=== PATIENT | male | born 1960 | race Caucasian/White ===

== ENCOUNTER 2022-01-08 00:12 | Day surgery (SDC) | payer OTHER, SELFPAY ==
[2022-01-06 10:24] VITALS: BMI 27.1
--- NOTE | 2022-01-06 10:57 | PC.NURSE ---
Report to the Outpatient Waiting Room, entrance under the green pavilion located off [facility], at 1000 on 01-08-22. OR Time: 1200. - You and your visitor will be asked to self-screen and do not enter if you have any COVID symptoms. - Only one visitor and NO children visitors are allowed at this time. - The patient visitor is requested to leave or wait in car when not with patient due to restrictions. - A mask is required within the hospital. Patients may have clear liquids (water, carbonated beverages, clear teas, apple juice) until 3 hours prior to surgery with a maximum of 20 ounces. 0900 - No food from midnight until time of surgery - Infants may have breast milk until 4 hours before surgery, formula 6 hours prior to surgery. - Children will be allowed to drink immediately following surgery. If applicable, please bring a bottle or sippy cup to assist with drinking. Juice, water, soda, and popsicles are readily available. For infants on formula, please bring formula the day of surgery. Pacifiers are allowed. Take the following medications with a SIP of water the morning of surgery: atorvastatin Medications to discontinue per physician: N/A Please no make-up, nail saudi [place]abian, hairspray, perfume, deodorant, or body powder the day of surgery. No jewelry (including any body piercings) or valuables the day of surgery, leave them at home. Please take a shower or bath the night before, or the morning of, surgery with an antibacterial soap. Hibiclens Wear comfortable, loose fitting clothing. Children are encouraged to wear pajamas. - Jewelry must be removed prior to entering the operating room. Rings and piercings that are not removed may be cut off. - The hospital will not accept responsibility for valuables. - Please leave all valuables, including medications, at home the day of surgery. If you are going home after surgery, a licensed otr refrigerated cdl truck driver must drive you home. - NO public transportation without another adult. - We recommend that an adult stay with you for 24 hours following discharge. - We also recommend that you do not drive, make important decision, drink alcoholic beverages, or take any drugs that were not prescribed by your health care provider for at least 24 hours after your discharge time. For Pediatric surgeries, we recommend two adults accompany the child home (only one inside the building at this time). Follow any additional instructions given to you from your surgeon. If you or anyone in your household have experienced Covid symptoms in the past week, please notify your surgeon or the nurse liaison at the phone number below for possible testing. Telephone instructions given to Nuno Mcgrath and asked if any additional questions and then verbalized understanding. Patient advised to call surgeon office or pre surgery nurse liaison [phone] if any additional questions.
--- NOTE | 2022-01-07 15:44 | PM.SD2 ---
Same Day Admit/Disch: HPI History of Present Illness Chief complaint: left inguinal hernia Narrative: Nuno Mcgrath is a 61 year old male Who has had a bulge and some discomfort in the left groin for at least a couple of years. This has become more bothersome. He was seen in the office and found to have a left inguinal hernia. He also had a CT scan that showed a left inguinal hernia. He is taken to surgery now for elective inguinal hernia repair. 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 Gender identity (if verbalized by the patient): Male Spiritual care concerns: No Same Day Admit/Disch: Med Pre-admit Medications Home Medications Medication Instructions Recorded Confirmed Type atorvastatin 10 mg tablet 10 mg PO DAILY 10/22/21 01/08/22 History hydrocodone 5 mg-acetaminophen 325 1 - 2 tablet PO Q6H PRN pain #7 01/08/22 Rx mg tablet tabs ketorolac 10 mg tablet 10 mg PO Q6H 4 days #16 tabs 01/08/22 Rx Exam Const: General: comfortable, no acute distress, alert and awake HENMT: Head: normocephalic and atraumatic Mouth: Yes Normal oral and palatal mucosa present Eyes: Conjunctivae: conjunctivae normal Pupils: Equal, round and reactive pupils present EOM: EOMs intact bilaterally Neck: Neck: normal visual inspection, no lymphadenopathy and nontender Resp: Effort & Inspection: normal respiratory effort Auscultation: clear to auscultation bilaterally Cardio: Rate: regular rate Rhythm: regular rhythm Heart sounds: no gallops, no murmurs and no rubs GI: Inspection: non-distended GI Palp: Yes Soft to palpation, No Tenderness to palpation present (GI), No Hepatomegaly present and No Splenomegaly present : Male General Exam: Yes hernia ( Reducible left inguinal hernia) Penis: Yes normal penis Scrotum: scrotum normal Testes: Testes normal Skin: Lesions: no lesions Rashes: no rashes Neuro: General: no focal motor deficits and CN's II-XI intact bilaterally Cranial nerves: Yes Equal, round and reactive pupils present, Yes Bilaterally intact EOM present, Yes facial symmetry and Yes Midline tongue present Speech: normal speech Motor exam (neuro): 5/5 motor strength present throughout and Motor abnormalities not present Extrem: General: no clubbing, cyanosis or edema and edema Psych: Affect: normal affect Thought process: Normal thought process present Insight: Good insight present (Psych) DS: Summary Time Spent with Patient Time attestation: Total time spent providing and/or coordinating discharge services: DS: Admitting Diagnosis Discharge Date 01/08/2022 Admitting Diagnosis left inguinal hernia -plan to proceed with inguinal hernia repair under anesthesia. The procedure the risks the benefits have been discussed with the patient. The use of mesh, the usual recovery have been discussed. All questions were answered. He understands and agrees to go ahead. DS: Discharge Diagnosis Discharge Diagnosis (1) Left inguinal hernia: Code(s): K40.90 - Unilateral inguinal hernia, without obstruction or gangrene, not specified as recurrent Status: Chronic Discharge Plan Discharge Patient Disposition: H
[2022-01-08 10:39] VITALS: BP 124/67; PULSE 61; RESP 16; TEMP 36.4; O2SAT 100
[2022-01-08] MEDS: ACETAMINOPHEN 500 MG TABLET 1000 MG PO (10:55)
[2022-01-08] MEDS: LACTATED RINGERS 1,000 ML 30 ML IV CONT (11:07)
[2022-01-08] MEDS: KETOROLAC 15 MG/ML VIAL (*BKC) IV PUSH (11:14)
--- NOTE | 2022-01-08 12:18 | P.PNAN_ITS ---
Anes - Initial Pre Proc Eval Procedure: Operation Date: 01/08/22 12:30 Proposed Procedures p Left Inguinal Hernia Repair - Samuel Quesada MD Date/Time: 01/08/22 12:18 Surgeon: Samuel Quesada MD Pre Op Diagnosis: left inguinal hernia Patient Data Age: 61 Gender: M Height: 1.83 m Weight: 93.1 kg Last Vital Signs Temp 97.5 F L 01/08/22 10:39 Pulse 61 01/08/22 10:39 Resp 16 01/08/22 10:39 BP 124/67 01/08/22 10:39 Pulse Ox 100 01/08/22 10:39 O2 Del Method Room Air 01/08/22 10:39 Allergies Allergy/AdvReac Type Severity Reaction Status Date / Time No Known Allergies Allergy Verified 01/08/22 10:52 Home Medications Medication Instructions Recorded Confirmed Type atorvastatin 10 mg tablet 10 mg PO DAILY 10/22/21 01/08/22 History Patient hx anesthesia problems: none Family hx anesthesia problems: none Results Review: All pre-operative results and documents have been reviewed as part of the pre-operative evaluation. 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 Informed Consent: The patient's anesthetic plan and its attendant risks and benefits were discussed with the patient/family/POA. Questions were solicited and answers provided to the satisfaction of the patient/family/POA.
--- NOTE | 2022-01-08 12:49 | SUR.PREOP ---
pt informed delay in procedure.
--- NOTE | 2022-01-08 13:00 | WPDHPUPDATE1 ---
History and Physical Update Update Date/Time: 01/08/22 13:00 History and Physical has been reviewed, including an updated exam of the patient. There are NO changes in the patient's condition. Risks, benefits, and alternatives have been discussed and questions answered. Patient agrees to proceed with procedure.
[2022-01-08] MEDS: ceFAZolin 2 GM/D5W 50 ML 2 GM/50 ML BAG IVPB (13:12)
[2022-01-08] MEDS: BUPIVACAINE/EPINEPHRINE 0.25% 50 ML VIAL INFILTRATE (14:18)
--- NOTE | 2022-01-08 14:31 | P.OP_ITS ---
Procedure Note - Detailed Date of Procedure 01/08/22 Pre-op Diagnosis left inguinal hernia Post-op Diagnosis Same Procedure Performed Left inguinal hernia repair with mesh Surgeon Samuel Quesada MD Signs Sales Representative Ti Connor CRNA Anesthesia General (G IV S), Local (0.25% bupivacaine with epinephrine) and Other (Xaracoll) Indications Patient is a 61-year-old man with at least a couple of years of left groin bulge which has gotten bigger and is more bothersome. He was examined in the office and found to have a left inguinal hernia. He is taken to surgery now for repair Findings Patient had a large indirect hernia. Description of Procedure The patient was taken to surgery and anesthesia was introduced. The left groin and genitalia were prepped and draped. The proposed incision was marked on the skin. Local was infiltrated in the skin and the deeper subcutaneous tissues. Incision was made and dissection was carried down through the subcutaneous. Crossing veins were cauterized and divided. Dissection was carried through Brayan's fascia and eventually down to the external oblique aponeurosis. The aponeurosis was exposed as was the external ring. Local was then infiltrated deep to the aponeurosis in the area of the inguinal canal and its contents. The aponeurosis was opened laterally and extended medially through the external ring. The leaves of the aponeurosis were freed from the underlying inguinal canal contents. The ilioinguinal nerve was left attached to the spermatic cord and was un injured through the procedure. We mobilized the cord medially on a Jefry drain. We then mobilized the cord back to the internal ring. We dissected in the anteromedial spermatic cord. There was large amount of lipomatous tissue in the cord. This was dissected free and back to the internal ring. There was amputated and discarded. We then found the hernia sac. We dissected the hernia sac back to the internal ring. High dissection was performed. I then dunked the hernia sac in the retroperitoneum. A large PerFix Light plug was used. This was placed in the defect. The edges were sutured to the transversalis fascia with interrupted 3-0 Vicryl suture. A patch was then cut to the appropriate size. It was placed over the inguinal canal floor with the lateral leaves passing beyond the cord. I then placed the Xaracoll over the patch. The cord was laid over the 1st pieces Xaracoll. The external oblique aponeurosis was closed with interrupted 3-0 Vicryl suture. The 2nd piece of Xaracoll was placed over the aponeurosis. Brayan's fascia was then closed with interrupted 3-0 Vicryl suture. The last piece of Xaracoll was placed in the subcutaneous. The skin was then loosely approximated with interrupted 4-0 Vicryl skin suture. The skin was finally closed with a running 4-0 Monocryl skin suture. The wound was dressed with Exofin surgical adhesive. The patient was awakened and taken to outpatient recovery in good condition. Sponge and needle counts were correct x2. Implants Large PerFix Light plug and patch, Xaracoll Estimated Blood Loss -5 Drains No Packing No Pathology None sent Complications No immediate complications Condition Stable Disposition Same day [facility] Billing Surgery - Charge Forward: Surgery Billing (Left inguinal hernia repair)
[2022-01-08 14:35] VITALS: BP 140/67; PULSE 88; RESP 16; O2SAT 97
[2022-01-08 15:00] VITALS: BP 140/75; PULSE 77; RESP 20
[2022-01-08 15:30] VITALS: BP 126/68; PULSE 78; RESP 20
[2022-01-08 16:09] VITALS: BP 153/69; PULSE 51; RESP 20
[2022-01-08 16:30] VITALS: BP 155/70; PULSE 45; RESP 20
== END 2022-01-08 16:35 | disposition home or self-care (01) ==
PROVIDERS: PCP Nurse Practitioner Family; Visit Provider Surgery
PROC: (CPT 49505; principal; 2022-01-08 12:30)
DX: K40.90 Unilateral inguinal hernia, without obstruction or gangrene, not specified as recurrent (principal); Z87.891 Personal history of nicotine dependence
CPT/HCPCS: 49505; A9270; C1781; J0690; J1885; J2250; J2270; J2704; J3010; J7120

== ENCOUNTER 2023-08-10 09:50 | Outpatient (CLI) | payer OTHER, SELFPAY ==
--- NOTE | ~2023-08-10 | US_ITS ---
EXAMINATION: US venous doppler [facility] DATE: 08/10/2023 10:29 INDICATION: Localized lower limb edema. TECHNIQUE: Grayscale ultrasound images without and with compression and Doppler ultrasound images of the bilateral lower extremity veins were obtained. COMPARISON: None. FINDINGS: The visualized portions of right common femoral vein, profunda (deep) femoral vein, femoral vein, pop liteal vein, peroneal veins, posterior tibial veins, and greater saphenous vein outflow are patent. The visualized portions of left common femoral vein, profunda femoral vein, femoral vein, popliteal v ein, peroneal veins, posterior tibial veins, and greater saphenous vein outflow are patent. IMPRESSION: 1. No deep venous thrombosis. Reviewed, dictated and finalized at location A.
== END 2023-08-10 09:51 | disposition home or self-care (01) ==
PROVIDERS: PCP Family Medicine; Visit Provider Internal Medicine Cardiovascular Disease
DX: R60.0 Localized edema (principal)
CPT/HCPCS: 93970

== ENCOUNTER 2024-05-26 16:42 | Emergency (ER) | payer OTHER, SELFPAY ==
--- NOTE | ~2024-05-26 | XR_ITS ---
CHEST RADIOGRAPH, PA AND LATERAL CLINICAL HISTORY: chest pain . COMPARISON: None available TECHNIQUE: PA and lateral views of the chest. FINDINGS Small hiatal hernia. The remainder of the cardiomediastinal silhouette is otherwise unremarkable. The lungs are clear. Visualized osseous structures and soft tissues are unremarkable. IMPRESSION: No focal infiltrate or effusion. Reviewed, dictated and finalized at location A. 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
--- OUTSIDE RECORDS SUMMARY | 2024-05-26 16:46 | XMS_ITS | Clinical Summary ---
Author [place] [facility] [place] [address] [facility] Address [address] [place] [address] Care Team Providers Care Shipping Receiving Clerk Name Role Phone Flash Horner MD Primary Care Provider [phone] Sandro Samaniego MD Unavailable [phone] Allergies Active Allergy Reactions Criticality Noted Date Comments Cat Dander Sneezing,Other (See comments) High Reaction: sneezing, congestion, Medications triamcinolone (KENALOG) 0.1 % ointmentIndicat ions:Dermatitis Apply topically 2 (two) times a day as needed for irritation or rash 60 g 5 3 Active aspirin 81 mg enteric coated tablet Take 1 tablet (81 mg total) by mouth daily 90 tablet 3 4 08/05/19 25 Active atorvastatin (LIPITOR) 80 mg tablet Take 1 tablet (80 mg total) by mouth daily 90 tablet 3 4 08/05/19 25 Active cyanocobalamin (Vitamin B-12) 2,500 mcg tablet, sublingualIndic ations:Preventi on of Vitamin B12 Deficiency Take 1 tablet (2,500 mcg total) by mouth daily 90 tablet 3 4 08/05/19 25 Active ferrous sulfate 325 mg (65 mg of elemental iron) tabletIndicatio ns:Iron Deficiency Anemia Take 1 tablet (325 mg total) by mouth daily with breakfast 90 tablet 3 4 08/05/19 25 Active metoprolol XL (TOPROL-XL) 50 mg extended release tablet Take 1 tablet (50 mg total) by mouth daily 90 tablet 3 4 08/05/19 25 Active ticagrelor (BRILINTA) 90 mg tablet Take 1 tablet (90 mg total) by mouth 2 (two) times a day 180 tablet 3 4 08/05/19 25 Active Active Problems Problem Noted Date Diagnosed Date Unstable angina ([facility]) 07/21/2023 Chest pain, unspecified type 07/19/2023 Coronary artery disease invo lving [place] coronary artery of [place] heart with unstable angina pectoris 07/19/2023 Chest pain 07/10/2023 Elevated blood pressure reading 07/10/2023 Assessment & Plan (07/10/2023 11:16 AM DEXIGRAPH OPERATOR): Today in office BP reading manually was 124/72 NAD, however patient is c/o of mild left sided chest pain Strongly recommended going to the ER for further workup and evaluation. Unable to order workup , labs, imaging at . Patient stated he would monitor and reach out to PCP office on Wednesday Dermatitis 02/03/2023 Assessment & Plan (02/03/2023 3:26 PM CDT): Discussed chronic friction/itching causing thickened skin and lichenification. Possible secondary infection that has since resolved as patient reports improvement with antibiotic treatment. Prescribed topical steroid and abx cream. Follow up if no improvement. Left inguinal hernia 10/07/2021 Assessment & Plan (10/07/2021 9:26 AM CDT): Discussed general surgeons to fix hernia. Is going to research surgeons & call if referral needed. Colon cancer screening 07/17/2021 Assessment & Plan (07/17/2021 9:04 AM CDT): Declines colonoscopy; aware that it is gold standard for CRC screening. Agreeable to cologuard. Aware that cologuard kit will be mailed with directions. To call if no results rec'd 1-2 weeks after kit mailed back for completion of test. Last cologuard neg 08/02/18. Aware to complete test after 08/02/21 Erectile dysfunction 01/16/2021 Assessment & Plan (01/16/2021 8:45 AM CDT): Printed script for viagra given. Aware to shop different pharmacies to find cheapest [place]. Aware that coupons online. Reviewed med SE & scheduling. If erection lasts >4hours; to go to ER. Reviewed red flags. Encounter for prostate cancer screening 01/11/20 Assessment & Plan (01/11/2020 9:06 AM CDT): PSA ordered; will contact with results when received. BMI 29.0-29.9,adult 07/13/2019 Assessment & Plan (10/07/2021 9:03 AM CDT): Active. Discussed healthy diet and importance of regular physical activity. Assessment & Plan (07/13/2019 11:04 PM CDT): Reviewed need to lose weight, reviewed health benefits. Reviewed recommendations for daily intake & activity 20-30 minutes/day. Discussed healthy diet and importance of regular physical activity. Has been dancing 3x/wk for exercise. Hyperlipidemia 06/21/2017 Assessment & Plan (10/07/2021 9:27 AM CDT): 07/14/19 WA=899 HDL=53 MX=729 PAD=622 TC/HDL=4.0 07/05/20 QX=774 HDL=65 TG=60 LBX=599 TC/HDL=3.3 01/16/21 RC=298 HDL=57 TG=78 NXS=025 TC/HDL=4.0 ZCXPWJ=768 10/03/21 PI=003 HDL=60 TG=71 JCW=735 TC/HDL=3.1 XFNGYW=997 Copy of results from 10/03/21 given to Nuno Mcgrath. Reviewed results at time of appointment. Atorvastatin 10mg daily. Patient should focus on limiting bad fats in the diet and using exercise as a way to improve the lipid status. Secondary prevention. Reviewed medications. Denies any statin Ses. Reviewed diet/exercise recommendations. Reviewed red flags. Assessment & Plan (07/17/2021 9:05 AM CDT): 07/11/18 MT=183, HDL=61 FJ=397 EBE=564 TC/HDL=4.0 07/14/19 VI=990 HDL=53 KX=467 BBD=375 TC/HDL=4.0 07/05/20 BR=278 HDL=65 TG=60 FQB=134 TC/HDL=3.3 01/16/21 GL=277 HDL=57 TG=78 WLF=360 TC/HDL=4.0 LZJMQH=321 Atorvastatin 10mg sent 01/2021 appt. Has not been taking. Reviewed increasing LDL/TC. Agreeable to restart atorvastatin 10mg daily. Reviewed diet. Not to get diet info off of [employer] but more reliable source such as [place] [employer], [facility], [place] [employer]. Assessment & Plan (01/16/2021 8:48 AM CDT): 07/14/19 ZZ=940 HDL=53 OR=520 ZWL=790 TC/HDL=4.0 07/05/20 RL=340 HDL=65 TG=60 QYB=027 TC/HDL=3.3 01/16/21 PV=486 HDL=57 TG=78 TZT=091 TC/HDL=4.0 IYWUBH=985 Atorvastatin 10mg sent. Patient should focus on limiting bad fats in the diet and using exercise as a way to improve the lipid status. Secondary prevention. Reviewed medications. Lipid panel ordered; will call w/results when rec'd. Denies any statin Ses. Reviewed diet/exercise recommendations. Reviewed red flags. The 10-year ASCVD risk score (Uriel DARNELL Jr., et al., 2013) is: 9.7% Values used to calculate the score: Age: 60 years Sex: Male Is Non- : No Diabetic: No Tobacco smoker: No Systolic Blood Pressure: 130 mmHg Is BP treated: No HDL Cholesterol: 65 mg/dL Total Cholesterol: 228 mg/dL Abnormal electrocardiography 09/04/2016 Overview (09/25/2016): Abnormal EKG Resolved Problems Problem Noted Date Diagnosed Date Resolved Date Class 1 obesity due to exces s calories with serious comorbidity and body mass index (BMI) of 30.0 to 30.9 in adult 02/03/2023 02/22/2023 BMI 28.0-28.9,adult 07/17/2021 10/08/19 22 Assessment & Plan (07/17/2021 8:39 AM CDT): Discussed healthy diet and importance of regular physical activity. BMI 27.0-27.9,adult 01/16/2021 07/18/19 22 Assessment & Plan (01/16/2021 8:46 AM CDT): Healthy, active lifestyle. BMI is acceptable for this patient. BMI 26.0-26.9,adult 07/11/2020 01/17/20 21 Assessment & Plan (07/11/2020 9:13 AM DEXIGRAPH OPERATOR): Dances for exercise. Discussed healthy diet and importance of regular physical activity. BMI is acceptable for this patient. LLQ abdominal pain 07/11/2020 Assessment & Plan (07/11/2020 9:36 AM DEXIGRAPH OPERATOR): CT abd/pelvis w contrast ordered. Will send order to [facility]. Aware that business office director will call for authorization & call him one it is approved/denied. Discussed inguinal hernias: [id number] symptoms from an inguinal hernia, surgical repair is indicated. Patients with minimal or no symptoms from an inguinal hernia may be managed with elective surgery or watchful waiting. Symptomatic hernia -- Patients with significant symptoms attributable to an inguinal hernia should undergo elective surgical repair. Such symptoms typically include: ?Groin pain with exertion (eg, lifting) ?Inability to perform daily activities due to pain or discomfort from the hernia ?Inability to manually reduce the hernia (ie, chronic incarceration) Mr Mcgrath is able to exercise/dance 3x/wk w/o need to stop d/t pain. Reports that bulge (when present) is reducible. Has mild to moderate pain when present. BMI 24.0-24.9, adult 01/11/2020 021 Assessment & Plan (01/11/2020 9:00 AM CDT): Discussed healthy diet and importance of regular physical activity. BMI is acceptable for this patient. Has lost 33# since 07/2019 appt. Greatly improved lifestyle/diet. No changes at this time. Congratulated on great job. Preventative health care 01/11/2020 Assessment & Plan (01/11/2020 9:01 AM CDT): Congratulated on healthy diet/exercise. Has lost 33# since 07/2019 appt w/lifestyle changes. Very health-minded. Labs ordered for next appt 07/2020 yearly physical exam. No hernia noted on exam. Discussed wt lifting, protecting area. Discussed compression shorts, decrease core exercises. Watch for hernia, reduce. Possible surgical intervention if needed. Reviewed red flags. Need for influenza vaccination 07/13/2019 07/11/2020 Assessment & Plan (01/11/2020 8:57 AM CDT): Flu vaccine given today. Discussed possible tenderness/redness at injection site. Assessment & Plan (07/13/2019 11:15 AM CDT): Flu vaccine given today. Discussed possible tenderness/redness at injection site. Need for pneumococcal vaccination 07/13/2019 01/11/2020 Assessment & Plan (07/13/2019 11:15 AM CDT): prevnar 13 vaccine given today. Discussed possible tenderness/redness at injection site. Annual physical exam 07/12/2019 Assessment & Plan (07/12/2019 10:21 PM CDT): 1. Eat a healthy diet: focus on lean meats and proteins, more fruits, vegetables and whole grains and low in sugars and fats. Limit red meat and avoid processed meat. 2. Maintain a healthy weight; avoid being overweight. Aim for a normal body mass index (BMI) of 18.5-24.9. Help learning to eat healthier, we can set up appointment with paper sales representative/resin shaver. 3. Have an active lifestyle, strive for 30 minutes of moderate exercise 5 times a week and strength or resistance training at least twice a week. 4. Use broad-spectrum (UVA+UVB) sunscreen with SPF 30 or greater, is water resistant, limit time spent in the sun (10 am-4pm), wear hat, wear UV protective clothing, wear sunglasses. Never use a tanning bed. Skin that was irradiated may be more sensitive over your lifetime. 5. Do not smoke or chew tobacco; participate in a smoking cessation program. 6. Limit alcohol intake, 2 drinks per day for a man. Encounter for screening for lipoid disorders 0 01/16/2021 Assessment & Plan (07/11/2020 9:13 AM DEXIGRAPH OPERATOR): Copy of results given to Nuno Mcgrath. Reviewed results at time of appointment 07/11/20 07/11/18 MG=397, HDL=61 KE=533 GGZ=774 TC/HDL=4.0 07/14/19 WZ=632 HDL=53 FT=516 HOO=305 TC/HDL=4.0 07/05/20 ZR=936 HDL=65 TG=60 OLT=432 TC/HDL=3.3 Reviewed diet changes to improve TC/LDL The 10-year ASCVD risk score (Uriel PATRICK Jr., et al., 2013) is: 7.9% Values used to calculate the score: Age: 59 years Sex: Male Is Non- : No Diabetic: No Tobacco smoker: No Systolic Blood Pressure: 124 mmHg Is BP treated: No HDL Cholesterol: 65 mg/dL Total Cholesterol: 216 mg/dL Assessment & Plan (01/11/2020 8:59 AM CDT): Lab Results Component Value Date CHOL 195 07/14/2019 CHOL 223 (H) 07/11/2018 HDL 53 07/14/2019 HDL 61 07/11/2018 TRIG 114 07/14/2019 TRIG 106 07/11/2018 RRK=952 07/11/18 QKS=058 07/14/19 Has since lost 33# since that draw. Will recheck prior to next appt. Lipid panel ordered; will call w/results when received. Reviewed diet/exercise recommendations. Assessment & Plan (07/13/2019 11:16 AM CDT): Lipid panel ordered; will call w/results when received. Reviewed diet/exercise recommendations. Screening PSA (prostate specific antigen) 07/12/2019 01/11/2020 Assessment & Plan (07/12/2019 10:22 PM CDT): PSA ordered; will call with results when received. Swelling of lower extremity 09/04/2016 07/12/2019 Overview (09/25/2016): Leg swelling Sensation of chest tightness 09/04/2016 07/12/2019 Overview (09/25/2016): Pressure in right side of chest Swelling 09/04/2016 07/12/2019 Overview (09/25/2016): Swelling Screening status 09/04/2016 07/12/2019 Overview (09/25/2016): Encounter for screening colonoscopy Encounters Date Type Department Care Team Description 02/24/2024 [facility]phone [facility] [address] [place] [address] Flash Horner MD from Last 3 Months Immunizations Name Administration Dates Next Due Influenza, Quadrivalent, Spl it, Preservative Free, Intramuscular 02/22/2023,05/14/2022,01/11/2020,07/12 Influenza, Unspecified 05/16/2021(Deferr ed: Patient Refused),01/31/2021,01/31/2021(Deferre d: Patient Refused),01/01/2021(Deferred: Patient Refused),07/11/2018(Deferred: Patient Refused),05/03/2018(Deferred: Patient Refused),05/03/2017(Deferred: Patient Refused),05/04/2016(Deferred: Patient Refused) Pneumococcal Conjugate PCV 13 07/13/2019 Surgical History Surgery Date Site/Laterality Comments APPENDECTOMY Appendectomy LASIK 15 years ago HERNIA REPAIR January 2022 Medical History Medical History Date Comments Arthritis past few months Family History Medical History Relation Name Comments Other Brother 2 Schizophrenia & Manic depression; Cause of : Schizophrenia & Manic depression Mental illness Brother 3 Avila Mcgrath Diabetes Father Nicholas Mcgrath Diabetes mellit us; Other Mother Mellissa Mcgrath Alive and well; Stroke Mother Mellissa Mcgrath Other Sister 1 Alive and well; Relation Name Status Comments Brother 1 (Age 60) Brother 2 Brother 3 Avila Alcides Father Nicholas Mcgrath (Age 87) Mother Mellissa Mcgrath Alive Sister 1 Alive Social History Tobacco Use Types Packs/Day Years Used Date Smoking Tobacco: Never Smokeless Tobacco: Never Tobacco Cessation:Counseling Given: Not Answered Alcohol Use Standard Drinks/Week Comments No 0 (1 standard drink = 0.6 oz pur e alcohol) [facility] Utilities Answer Date Recorded In the past 12 months has [employer], gas, oil, or water [employer] threatened to shut off services in your home? No 07/20/2023 Social Connection and Isolat ion Panel [NHANES] Answer Date Recorded In a typical week, how many times do you talk on the phone with family, friends, or neighbors? More than three times a week 07/20/2023 How often do you get togethe r with friends or relatives? Three times a week 07/20/2023 How often do you attend [facility] or nondenominational services? More than 4 times per year 07/20/2023 Do you belong to any clubs o r organizations such as congregational groups, unions, fraternal or athletic groups, or school groups? Yes 07/20/2023 How often do you attend meet ings of the clubs or organizations you belong to? More than 4 times per year 07/20/2023 Are you , , di vorced, , never , or living with a partner? 07/20/2023 AUDIT-C Answer Date Recorded Q1: How often do you have a drink containing alc ohol? 2-4 times a month 02/22/2023 Q2: How many drinks containi ng alcohol do you have on a typical day when you are drinking? 1 or 2 02/22/2023 Q3: How often do you have si x or more drinks on one occasion? Never 02/22/2023 Overall Financial Resource Strain (CARDIA) Answe r Date Recorded How hard is it for you to pa y for the very basics like food, housing, medical care, and heating? Not hard at all 07/20/2023 PHQ-2 Answer Date Recorded PHQ-2 Total Score (If total score is 3 or more points, staff should administer the PHQ-9) 0 08/02/2023 Hunger Vital Sign Answer Date Recorded Within the past 12 months, y ou worried that your food would run out before you got the money to buy more. Never true 07/20/19 24 Within the past 12 months, t he food you bought just didn't last and you didn't have money to get more. Never true 07/20/2023 PRAPARE - Transportation Answer Date Re corded In the past 12 months, has l ack of transportation kept you from medical appointments or from getting medications? No 07/01 In the past 12 months, has l ack of transportation kept you from meetings, work, or from getting things needed for daily living? No 07/20/2023 Housing Stability Vital Sign Answer Bran e Recorded In the last 12 months, was t here a time when you were not able to pay the mortgage or rent on time? No 07/20/2023 In the last 12 months, how many places have you lived? 1 07/20/2023 In the last 12 months, was t here a time when you did not have a steady place to sleep or slept in a usp (including now)? No 07/20/2023 Personal Safety Answer Date Recorded Have you ever been in or are you currently in a harmful physical or emotional relationship or is someone making you feel afraid or unsafe? Denies 07/19/2023 Education Answer Date Recorded What is the highest level of school you have completed or the highest degree you have received? High school graduate 07/20/2023 Sex and Gender Information Value Date Recorded Sex Assigned at Not on file Legal Sex Male 12:49 PM DEXIGRAPH OPERATOR Gender Identity Male 01/09/2021 7:16 AM CDT Sexual Orientation Straight 07/15/2021 11 :29 AM CDT Obstetrics History Last Filed Vital Signs Vital Sign Reading Time Taken Comments Blood Pressure 128/70 08/02/2023 10:17 AM CDT Pulse 62 08/02/2023 10:17 AM CDT Temperature 36.3 ??C (97.3 ??F) 07/24/2023 11:06 AM C DT Respiratory Rate 18 08/02/2023 10:17 AM CDT Oxygen Saturation 98% 08/02/2023 10:17 AM CDT Inhaled Oxygen Concentration - - Weight 102.1 kg (225 lb) 08/02/2023 10:17 AM CDT Height 180.3 cm (5' 10.98 ) 08/02/2023 10:17 AM CDT Body Mass Index 31.4 08/02/2023 10:17 AM CDT Plan of Treatment Health Maintenance Due Date Last Done Comments Hepatitis C Screening 1960 DTaP/Tdap/Td Vaccine (1 - Tdap) 1969 Hepatitis B Screening 1976 Zoster Vaccine (1 of 2) 2008 Pneumococcal vaccine 65+ (2 of 2 - PPSV23 or PCV20) 12/28/2023 07/13/2019 Covid-19 Vaccine (2 - 2023-2 5 season) 2024 08/08/2020 Influenza Vaccine (#1) 2024 , 05/14/2022, 01/31/2021, Additional history exists Well Visit 65+ 02/23/2024 02/22/2023, 07/01, 06/21/2017 Fall Risk Assessment 07/23/2024 07/24/2023, 10/07/2021, 07/17/2021, Additional history exists Depression Screening 08/01/2024 08/02/2023, 02/22/2023, 10/22/2022, Additional history exists Colon Cancer Screening-DNA Stool 09/21/2024 09/22/19, 08/02/2018 Prostate Cancer Screening-PSA 02/22/2025, 07/05/2020, 07/14/2019, Additional history exists Medical Devices Implanted Type Area Linen Room Attendant Device Identifier Shelf Expiration Date Model / Serial / Lot Cordis Mynxgrip 5fr Balloon Catheter Integrate Sealant Lock Latex Free [id number] - [id number] Implanted:Qty: 1 on 07/21/2023 by Sandro Samaniego MD at [facility] Other - see comments Right: Groin Cordis 10/30/2024 [id number] / / [id number] Cordis Mynxgrip 6-7fr Balloon Catheter Integrate Sealant Lock Latex Free [id number] - [id number] Implanted:Qty: 1 on 07/22/2023 by Tangela Dotson MD at [facility] Other - see comments Cordis 03/02/2025 [id number] / / [id number] [employer] Chacho Stent Coronary Drug Eluting Rapid Exchange Synergy Xd 2.94d46ng [place]zan[place] Chromium [id number] - [id number] Implanted:Qty: 1 on 07/22/2023 by Tangela Dotson MD at [facility] Stent [employer] Chacho 06/28/2024 [id number] / / [id number] [employer] Chacho Synergy Xd Monorail 3mm 20mm 144cm Delivery System 1 Access Port [id number] - [id number] Implanted:Qty: 1 on 07/22/2023 by Tangela Dotson MD at [facility] Stent [employer] Chacho 01/24/2025 [id number] / / [id number] [employer] Synergy Xd Monorail 2.75mm 38mm 144cm Delivery System 1 Access [id number] - [id number] Implanted:Qty: 1 on 07/23/2023 by Tangela Dotson MD at [facility] Stent [employer]acho 12/29/2023 [id number] / / Cordis Mynxgrip 5fr Balloon Catheter Integrate Sealant Lock Latex Free [id number] - [id number] Implanted:Qty: 1 on 07/23/2023 by Tangela Dotson MD at [facility] Cordis 06/02/2025 [id number] / / [id number] Procedures Procedure Name Priority Date/Time Associated Diagnosis Comments PSA SCREEN Routine 02/22/2023 9:10 AM CDT Prostate cancer screening STOOL DNA ? COLOGUARD Routine 09/21/2021 8:01 AM CDT Colon cancer screening from Last 3 Months or Most Recently Relevant to Health Maintenance Results * PSA screen (02/22/2023 9:10 AM CDT) Pathologist [facility] PSA-Total 0.73 <=5.40 ng/mL [facility] ([place]) Comment: Interpretive Data ?AGE ? SEX ?REFERENCE INTERVAL 0 minutes-150 years ?Female ?None 0 minutes-49 years ? Male ?None ? 50-59 years ? Male ?0-3.90 ? 60-69 years ? Male ?0-5.40 ? 70-79 years ? Male ?0-6.20 ? 80-150 years ?Male ?0-6.20 The Chris PSA Total assay procedure was used. Results from different manufacturers or methods may not be comparable. Serial testing should be performed using the same method. Current interpretive data last revised 21. Testing performed by: [facility], [address] [place] [address]., [id number] Blood 02/22/2023 9:10 AM CDT 02/22/2023 12:05 PM CDT us Alicia Sherman NP LAB BLOOD ORDERABLES Final Result Performing Organization Address City/State/[facility] Co de Phone Number [facility] ([place]) [address] [facility] [place] [address] * Stool DNA - Cologuard (09/21/2021 8:01 AM CDT) Pathologist [facility] Stool DNA - Cologuard Negative Negative [facility] (CLIA #:[id number]) Comment: NEGATIVE TEST RESULT. A negative Cologuard result indicates a low likelihood that a colorectal cancer (CRC) or advanced adenoma (adenomatous polyps with more advanced pre-malignant features) ??is present. The chance that a person with a negative Cologuard test has a colorectal cancer is less than 1 in 1500 (negative predictive value >99.9%) or has an ??advanced adenoma is less than ??5.3% (negative predictive value 94.7%). These data are based on a prospective cross-sectional study of 10,000 individuals at average risk for colorectal cancer who were screened with both Cologuard and colonoscopy. (Eric Rai. vielka al, N Engl J Med 2014;370(14):1286- 1297) The normal value (reference range) for this assay is negative. COLOGUARD RE-SCREENING RECOMMENDATION: Periodic colorectal cancer screening is an important part of preventive healthcare for asymptomatic individuals at average risk for colorectal cancer. ??Following a negative Cologuard result, the [place] Cancer Society and U.S. Multi-Society Task Force screening guidelines recommend a Cologuard re-screening interval of 3 years. References: [place] Cancer Society Guideline for Colorectal Cancer Screening: https://www.cancer.org/cancer/zjctp-myjmpu-bvwfog/jexoassmn-mordecffa-dkvikbj/ac s-rec ommendations.html.; Carlos DK, Cesar ASH, Mena FonsecaK, Colorectal Cancer Screening: Recommendations for Physicians and Patients from the U.S. Multi-Society Task Force on Colorectal Cancer Screening , Am J Gastroenterology 2017; 112:5026-1585. TEST DESCRIPTION: Composite algorithmic analysis of stool DNA-biomarkers with hemoglobin immunoassay. ?? Quantitative values of individual biomarkers are not reportable and are not associated with individual biomarker result reference ranges. Cologuard is intended for colorectal cancer screening of adults of either sex, 45 years or older, who are at average-risk for colorectal cancer (CRC). Cologuard has been approved for use by the U.S. FDA. The performance of Cologuard was established in a cross sectional study of average-risk adults aged 50-84. Cologuard performance in patients ages 45 to 49 years was estimated by sub-group analysis of near-age groups. Colonoscopies performed for a positive result may find as the most clinically significant lesion: colorectal cancer [4.0%], advanced adenoma (including sessile serrated polyps greater than or equal to 1cm diameter) [20%] or non- advanced adenoma [31%]; or no colorectal neoplasia [45%]. These estimates are derived from a prospective cross-sectional screening study of 10,000 individuals at average risk for colorectal cancer who were screened with both Cologuard and colonoscopy. (Eric Rai. vielka al, N Engl J Med 2014;370(14):3684-0466.) Cologuard may produce a false negative or false positive result (no colorectal cancer or precancerous polyp present at colonoscopy follow up). A negative Cologuard test result does not guarantee the absence of CRC or advanced adenoma (pre-cancer). The current Cologuard screening interval is every 3 years. ([place] Cancer Society and U.S. Multi-Society Task Force). Cologuard performance data in a 10,000 patient pivotal study using colonoscopy as the reference method can be accessed at the following location: www.Godigex/results. Additional description of the Cologuard test process, warnings and precautions can be found at www.cologuard.[employer]. Stool 09/21/2021 8:01 AM CDT 09/23/2021 11:54 AM CDT us Carmen Upton VEGETABLE FARMING SUPERVISOR LAB BODY FLUIDS AND STOOL S ORDERABLES Final Result Performing Organization Address City/State/[facility] Co de Phone Number [employer] (CLIA #:[id number]) [address] [place] [address] from Last 3 Months or Most Recently Relevant to Health Maintenance Insurance [facility] Advance Directives For more information, please contact: [phone] * Full Code (Latest Code Status on File) Date Activated Date Inactivated Comments 07/19/2023 2:31 PM 07/24/2023 5:10 PM Care Teams Shipping Receiving Clerk Relationship Specialty Start Date End Date Flash Horner MD [address] [place] [address] PCP - General 09/04/16 Sandro Samaniego MD [address] [place] [address] Consulting Physician Cardiovascular Disease 07/24/23
--- OUTSIDE RECORDS SUMMARY | 2024-05-26 16:46 | XMS_ITS | Encounter Summary ---
Author Organization [facility] Address [address] [place] [address] Care Team Providers Care Unarmed Security Officer Name Role Phone Flash Horner MD Primary Care Provider [phone] Sandro Samaniego MD Unavailable [phone] Encounter Details Date Type Department Care Team (Late st Contact Info) Description 09/04/2016 Orders Only [facility] [address] Antoni Goetz MD [address] [place] [id number] Social History Tobacco Use Types Packs/Day Years Used Date Smoking Tobacco: Never Alcohol Use Standard Drinks/Week Comments No 0 (1 standard drink = 0.6 oz pur e alcohol) Sex and Gender Information Value Date Recorded Sex Assigned at Not on file 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 Historical Provider [facility] MARTINA AGRAWAL Final Result documented in this encounter Visit Diagnoses Not on filedocumented in this encounter Care Teams Unarmed Security Officer Relationship Specialty Start Date End Date Flash Horner MD [address] [place] [address] PCP - General 09/04/16 Sandro Samaniego MD [address] [place] [address] Consulting Physician Cardiovascular Disease 07/24/23 documented as of this encounter
--- OUTSIDE RECORDS SUMMARY | 2024-05-26 16:46 | XMS_ITS | Referral Summary ---
Author Organization [facility] [address] [facility] Address [address] [place] [address] Care Team Providers Care Children'S Book Author Name Role Phone Flash Horner MD Primary Care Provider [phone] Sandro Samaniego MD Unavailable [phone] Encounters Date Type Department Care Team Description 02/24/2024 Telephone [facility] [address] [place] [address] Flash Horner MD from Last 3 Months Allergies Active Allergy Reactions Criticality Noted Date [...] Problem Noted Date Diagnosed Date Unstable angina ([facility]) 07/21/2023 Chest pain, unspecified type 07/19/2023 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 Reviewed results at time of appointment. Atorvastatin 10mg daily. Patient should focus on limiting bad fats in the diet and using exercise as a way to improve the lipid status. Secondary prevention. Reviewed medications. Denies any statin Ses. Reviewed diet/exercise recommendations. Reviewed red flags. Assessment & Plan (07/17/2021 9:05 AM CDT): 07/11/18 UD=152, HDL=61 DU=651 ZOM=278 TC/HDL=4.0 07/14/19 ML=578 HDL=53 FF=637 RYA=369 TC/HDL=4.0 07/05/20 NN=990 HDL=65 TG=60 RDD=367 TC/HDL=3.3 01/16/21 AZ=299 HDL=57 TG=78 IIB=804 TC/HDL=4.0 VBFQWD=414 Atorvastatin 10mg sent 01/2021 appt. Has not been taking. Reviewed increasing LDL/TC. Agreeable to restart atorvastatin 10mg daily. Reviewed diet. Not to get diet info off of [employer] but more reliable source such as [place] [employer], [facility], [place] Diabetic Association. Assessment & Plan (01/16/2021 8:48 AM CDT): 07/14/19 IM=110 HDL=53 EM=383 MNO=505 TC/HDL=4.0 07/05/20 TE=005 HDL=65 TG=60 UDW=495 TC/HDL=3.3 01/16/21 MY=512 HDL=57 TG=78 IYU=042 TC/HDL=4.0 IGQVCW=936 Atorvastatin 10mg sent. Patient should focus on limiting bad fats in the diet and using exercise as a way to improve the lipid status. Secondary prevention. Reviewed medications. Lipid panel ordered; will call w/results when rec'd. Denies any statin Ses. Reviewed diet/exercise recommendations. Reviewed red flags. The 10-year ASCVD risk score (Austintirso PATRICK Jr., et al., 2013) is: 9.7% Values [...] 21 Assessment & Plan (07/11/2020 9:13 AM MOLD LAMINATOR): Dances for exercise. Discussed healthy diet and importance of regular physical activity. BMI is acceptable for this patient. LLQ abdominal pain 07/11/2020 2 Assessment & Plan (07/11/2020 9:36 AM MOLD LAMINATOR): CT abd/pelvis w contrast ordered. [facility] Aware that access control officer will call for authorization & call him one it is approved/denied. Discussed inguinal hernias: [id number] symptoms from an inguinal hernia, surgical repair [...] at injection site. Annual physical exam 07/12/2019 021 Assessment & Plan (07/12/2019 10:21 PM CDT): [...] healthier, we can set up appointment with radiocommunications technician/sanitation worker cleaning machinery. 3. Have an active lifestyle, strive for [...] 01/16/2021 Assessment & Plan (07/11/2020 9:13 AM MOLD LAMINATOR): Copy of results given to Nuno Mcgrath. Reviewed results at time of appointment 07/11/20 07/11/18 FG=724, HDL=61 ND=411 VOU=711 TC/HDL=4.0 07/14/19 ZW=962 HDL=53 DX=855 ECY=731 TC/HDL=4.0 07/05/20 ME=067 HDL=65 TG=60 UYS=868 TC/HDL=3.3 Reviewed diet changes to improve TC/LDL The 10-year ASCVD risk score (Uriel DARNELL Jr., et al., 2013) is: 7.9% Values [...] 07/11/2018 TRIG 114 07/14/2019 TRIG 106 07/11/2018 QTO=778 07/11/18 AJB=877 07/14/19 Has since lost 33# since that [...] 07/12/2019 Overview (09/25/2016): Encounter for screening colonoscopy Immunizations Name Administration Dates Next Due Influenza, Quadrivalent, Spl it, Preservative Free, Intramuscular 02/22/2023,05/14/2022,01/11/2020,07/12 Influenza, Unspecified 05/16/2021(Deferr ed: Patient Refused),01/31/2021,01/31/2021(Deferre d: Patient Refused),01/01/2021(Deferred: Patient Refused),07/11/2018(Deferred: Patient Refused),05/03/2018(Deferred: Patient Refused),05/03/2017(Deferred: Patient Refused),05/04/2016(Deferred: Patient Refused) Pneumococcal Conjugate PCV 13 07/13/2019 Social History Tobacco Use Types Packs/Day Years Used Date Smoking Tobacco: Never Smokeless Tobacco: Never Tobacco Cessation:Counseling Given: Not Answered Alcohol Use Standard Drinks/Week Comments No 0 (1 standard drink = 0.6 oz pur e alcohol) [facility] Utilities Answer Date Recorded In the past 12 months has [employer], gas, oil, or water [employer] threatened to shut off services in your [...] week 07/20/2023 How often do you attend chur ch or episcopalian services? More than 4 times per year 07/20/2023 Do you belong to any clubs o r organizations such as mandaeism groups, unions, fraternal or athletic groups, or [...] place to sleep or slept in a chcf (including now)? 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 Gender Identity Male 01/09/2021 7:16 AM CDT Sexual Orientation Straight 07/15/2021 11 :29 AM CDT Last Filed Vital Signs Vital Sign Reading [...] 08/02/2023 10:17 AM CDT Plan of Treatment Not on file Medical Devices Implanted Type Area Assistant Professor Nurse Education Device Identifier Shelf Expiration Date Model / Serial / Lot Cordis Mynxgrip 5fr Balloon Catheter Integrate Sealant Lock Latex Free [id number] - [id number] Implanted:Qty: 1 on 07/21/2023 by Sandro Samaniego MD at [facility] Other - see comments Right: Groin Cordis 10/30/2024 [id number] / / [id number] Cordis Mynxgrip 6-7fr Balloon Catheter Integrate Sealant Lock Latex Free [id number] - [id number] Implanted:Qty: 1 on 07/22/2023 by Tangela Dotson MD at [facility] Other - see comments Cordis 03/02/2025 [id number] / / [id number] [employer] Chacho Stent Coronary Drug Eluting Rapid Exchange Synergy Xd 2.15k71ee Rockmart Chromium [id number] - [id number] Implanted:Qty: 1 on 07/22/2023 by Tangela Dotson MD at [facility] Stent [employer] Chacho 06/28/2024 [id number] / / [id number] [employer] Chacho Synergy Xd Monorail 3mm 20mm 144cm Delivery System 1 Access Port [id number] - [id number] Implanted:Qty: 1 on 07/22/2023 by Tangela Dotson MD at [facility] Stent [employer] Chacho 01/24/2025 [id number] / / [id number] [employer] Chacho Synergy Xd Monorail 2.75mm 38mm 144cm Delivery System 1 Access [id number] - [id number] Implanted:Qty: 1 on 07/23/2023 by Tangela Dotson MD at [facility] Stent [employer] Chacho 12/29/2023 [id number] / / Cordis Mynxgrip 5fr Balloon Catheter Integrate Sealant Lock Latex Free [id number] - [id number] Implanted:Qty: 1 on 07/23/2023 by Tangela Dotson MD at [facility] Cordis 06/02/2025 [id number] / / [id number] Procedures Procedure Name Priority Date/Time Associated Diagnosis Comments PSA SCREEN Routine 02/22/2023 9:10 AM CDT Prostate cancer screening STOOL DNA ? COLOGUARD Routine 09/21/2021 8:01 AM CDT Colon cancer screening from Last 3 Months or Most Recently Relevant to Health Maintenance Results * PSA screen (02/22/2023 9:10 AM CDT) Pathologist [facility] PSA-Total 0.73 <=5.40 ng/mL [facility] ([place]) Comment: Interpretive Data ?AGE ? SEX ?REFERENCE [...] data last revised 21. Testing performed by: [facility], [address] [place] [address]., [id number] Blood 02/22/2023 9:10 AM CDT 02/22/2023 12:05 PM CDT Alicia Sherman NP LAB BLOOD ORDERABLES Final Result [facility] ([place]) [address] [facility] Department [place] [address] * Stool DNA - Cologuard (09/21/2021 8:01 AM CDT) [facility] Stool DNA - Cologuard Negative Negative [facility] (CLIA #:[id number]) Comment: NEGATIVE TEST RESULT. A negative Cologuard [...] screened with both Cologuard and colonoscopy. (Eric Lennon et al, N Engl J Med 2014;370(14):1286- 1297) The normal value (reference range) for this assay is negative. COLOGUARD RE-SCREENING RECOMMENDATION: Periodic colorectal cancer screening is an important part of preventive healthcare for asymptomatic individuals at average risk for colorectal cancer. ??Following a negative Cologuard result, the [place] Cancer Society and U.S. Multi-Society Task Force screening guidelines recommend a Cologuard re-screening interval of 3 years. References: [place] Cancer Society Guideline for Colorectal Cancer Screening: https://www.cancer.org/cancer/ucigk-kpqlwv-sskyrf/ouqjyweym-sftmylqja-xbojtlb/ac s-rec ommendations.html.; Carlos DK, Cesar CR, Mena FonsecaK, Colorectal Cancer Screening: Recommendations for Physicians and Patients from the U.S. Multi-Society Task Force on Colorectal Cancer Screening , Am J Gastroenterology 2017; 112:9794-0727. TEST DESCRIPTION: Composite algorithmic analysis of stool [...] screened with both Cologuard and colonoscopy. (Eric Tyler al, N Engl J Med 2014;370(14):9264-4019.) Cologuard may produce a false negative or false positive result (no colorectal cancer or precancerous polyp present at colonoscopy follow up). A negative Cologuard test result does not guarantee the absence of CRC or advanced adenoma (pre-cancer). The current Cologuard screening interval is every 3 years. ([place] Cancer Society and U.S. Multi-Society Task Force). Cologuard performance data in a 10,000 patient pivotal study using colonoscopy as the reference method can be accessed at the following location: www.Smilebox/results. Additional description of the Cologuard test process, warnings and precautions can be found at www.[employer].com. Stool 09/21/2021 8:0 1 AM CDT 09/23/2021 11:54 AM CDT us Carmen Upton NP LAB BODY FLUIDS AND STOOL S ORDERABLES Final Result [facility] (CLIA #:[id number]) [address] [place] [address] from Last 3 Months or Most Recently Relevant to Health Maintenance Insurance [facility] Advance Directives For more information, please contact: [phone] * Full Code (Latest Code Status on File) Date Activated Date Inactivated Comments 07/19/2023 2:31 PM 07/24/2023 5:10 PM Care Teams Children'S Book Author Relationship Specialty Start Date End Date Flash Horner MD [address] [place] [address] PCP - General 09/04/16 Sandro Samaniego MD [address] [place] [address] [place] [address] Consulting Physician Cardiovascular Disease 07/24/23
--- NOTE | 2024-05-26 16:47 | ECG_ITS ---
Test Date: 2024-05-26 17:27:45 Measurements Intervals [place] Rate: 49 P: 10 AZ: 181 QRS: -44 QRSD: 173 T: -14 QT: 439 QTc: 398 Interpretive Statements SINUS BRADYCARDIA MARKED LEFT AXIS DEVIATION [QRS AXIS < -30] RIGHT BUNDLE BRANCH BLOCK [120+ ms QRS DURATION, UPRIGHT V1, 40+ ms S IN I/aVL/V4/V5/V6] No previous ECG available for comparison Electronically Signed On 05-26-2024 23:50:38 NURSE RN BSN by Kwabena Carrillo M.D.
[2024-05-26 17:20] VITALS: BP 148/80; PULSE 50; RESP 20; TEMP 36.4; O2SAT 99
--- NOTE | 2024-05-26 17:31 | ED_ITS ---
HPI - Chest Pain General Chief Complaint: Chest Pain <Shannan Benitez APRN - Last Filed: 05/26/24 17:34> Stated Complaint: intermittent chest pain, tiredness <Shannan Benitez APRN - Last Filed: 05/26/24 17:34> Time Seen by Provider: 05/26/24 17:20 <Shannan Benitez APRN - Last Filed: 05/26/24 17:34> Focused HPI: Patient is a 63-year-old male who presents to the ER with decreased energy and chest pain for the past 2-3 weeks. He reports he had cardiac stents placed in July and has followed up with his access coordinator as planned. Patient reports he called his access coordinator earlier today who advised him to come to the ER for evaluation. He endorses a history of hernia repair but no other medical history relevant ER visit. Patient denies shortness of breath, wheezing, recent fevers, urinary symptoms. GENERAL: Well-appearing, well-nourished, and in no acute distress. HEAD: Normocephalic, atraumatic. CHEST: Clear to auscultation. ?No respiratory distress. HEART: Bradycardia, regular rhythm. NEURO: ?Alert and oriented x3. Patient screened in triage and initial orders placed.? ?Additional care and disposition to be based upon?diagnostic testing and treatment. <Shannan Benitez APRN - Last Filed: 05/26/24 17:34> History of Present Illness HPI narrative: Patient is a 63-year-old gentleman who presents emergency department with chief complaint of generalized weakness and chest discomfort patient reports been ongoing for the last several weeks reports the pain last for a few seconds reports that does feel like tightness. The patient reports that he has several stents in his heart reports that he sees 1 of the local access coordinator. The patient reports he called the office today and they recommended he come to the emergency department for evaluation. <Aaron Osman MD - Last Filed: 05/26/24 22:04> Related Data Home Medications: Home Medications ?Medication ?Instructions ?Recorded ?Confirmed ?Last Taken ?Type aspirin 81 mg tablet,delayed 81 mg PO DAILY 08/10/23 05/26/24 05/26/24 History release (Adult Low Dose Aspirin) atorvastatin 80 mg tablet (Lipitor) 80 mg PO DAILY 08/10/23 05/26/24 05/26/24 History ferrous sulfate 325 mg (65 mg 325 mg PO DAILY 08/10/23 05/26/24 05/26/24 History iron) tablet metoprolol succinate 50 mg 50 mg PO DAILY 08/10/23 05/26/24 05/26/24 History tablet,extended release 24 hr (Toprol XL) ticagrelor 90 mg tablet (Brilinta) 90 mg PO Q12H 08/10/23 05/26/24 05/26/24 History vitamin B12 2,500 mcg-folic acid tablet PO DAILY 08/10/23 12/22/23 05/26/24 History 400 mcg disintegrating tablet <Shannan Benitez APRN - Last Filed: 05/26/24 17:34> Allergies/Adverse Reactions: Allergies Allergy/AdvReac Type Severity Reaction Status Date / Time cats Allergy Sneezing Uncoded 05/26/24 18:15 pollen Allergy Sneezing Uncoded 05/26/24 18:15 <Shannan Benitez APRN - Last Filed: 05/26/24 17:34> Review of Systems 2 Review of Systems: A 10 system review of systems was completed on the patient and is negative except for what is stated in the HPI. Nursing and ancillary documentation was reviewed. <Aaron Osman MD - Last Filed: 05/26/24 22:04> [facility]LY [facility] Past Medical History Medical History: Medical History Encounter for other specified surgical aftercare Overweight (BMI 25.0-29.9) Left inguinal hernia <Shannan Benitez APRN - Last Filed: 05/26/24 17:34> Surgical History Surgical History: Surgical History H/O inguinal hernia repair 01/08/22 History of appendectomy <Shannan Benitez APRN - Last Filed: 05/26/24 17:34> Family History Family History: Family History Mother TIA (transient ischemic attack) Hypertension Father Diabetes mellitus <Shannanbigg Benitez APRN - Last Filed: 05/26/24 17:34> Social History Social History: Social History Smoking packs per day: 0.75 Smoking cigarettes per day: 15.0 Years smoked: 20 Smoking pack-years: 15.00 Smoking status: Former smoker Tobacco type: cigarettes Second hand tobacco smoke exposure: No Smoking end date: 05/03/92 Alcohol intake: current Alcohol use details: rarely Substance use: never Substance use type: does not use Do You Feel Safe in your Home?: Yes Lack of Transportation: No Lack of Food: Never True Current Housing: I Have Housing Concerned About Future Housing: No Difficulty Paying Gas/Electric Bills: No Difficulty Paying for Meds: No Currently Unemployed: No Education: High School Diploma/GED Difficulty w/ Childcare or Family Care: No Living arrangements: with family 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 HEAD: Normocephalic, atraumatic. EYES: PERRLA and EOMI. ENT: Nares clear, no rhinorrhea or epistaxis. Mucous membranes moist. NECK: Supple. CHEST: Clear to auscultation. No respiratory distress. HEART: Regular rate and rhythm. No murmur heard. Normal peripheral pulses. ABDOMEN: Soft, nontender, nondistended, normal active bowel sounds. EXTREMITIES: Normal range of motion. No edema. SKIN: Warm, dry, no rash. NEURO: No focal deficits. Alert and oriented x3. PSYCH: Normal mood and affect. <Aaron Osman MD - Last Filed: 05/26/24 22:04> Course Vital Signs Vital signs: Vital Signs Temperature 36.4 C L 05/26/24 17:20 Pulse Rate 50 L 05/26/24 17:20 Respiratory Rate 20 05/26/24 17:20 Blood Pressure 148/80 H 05/26/24 17:20 Pulse Oximetry 99 05/26/24 17:20 Oxygen Delivery Room Air 05/26/24 17:20 Temperature 36.6 C 05/26/24 20:43 Pulse Rate 50 L 05/26/24 20:43 Respiratory Rate 16 05/26/24 20:43 Blood Pressure 147/91 H 05/26/24 20:43 Pulse Oximetry 100 05/26/24 20:43 Oxygen Delivery Room Air 05/26/24 18:21 <Shannan Benitez, SYSTEM DEVELOPMENT MANAGER - Last Filed: 05/26/24 17:34> Vital Signs Temperature 36.4 C L 05/26/24 17:20 Pulse Rate 50 L 05/26/24 17:20 Respiratory Rate 20 05/26/24 17:20 Blood Pressure 148/80 H 05/26/24 17:20 Pulse Oximetry 99 05/26/24 17:20 Oxygen Delivery Room Air 05/26/24 17:20 Temperature 36.6 C 05/26/24 20:43 Pulse Rate 50 L 05/26/24 20:43 Respiratory Rate 16 05/26/24 20:43 Blood Pressure 147/91 H 05/26/24 20:43 Pulse Oximetry 100 05/26/24 20:43 Oxygen Delivery Room Air 05/26/24 18:21 <Aaron Osman MD - Last Filed: 05/26/24 22:04> MDM - Chest Pain MDM Narrative Medical decision making narrative: Differential diagnosis includes ACS, electrolyte abnormality, dehydration, viral illness, pneumonia Chest x-ray showed no focal infiltrate COVID flu RSV are negative EKG showed no acute ischemic changes Troponin was negative on the 0 hour electrolytes showed no acute abnormality CBC was within normal limits repeat troponin was negative <Aaron Osman MD - Last Filed: 05/26/24 22:04> Lab Data Result diagrams: 05/26/24 18:17 05/26/24 18:17 <Shannan Benitez, WAYLON - Last Filed: 05/26/24 17:34> Labs: Lab Results 05/26/24 05/26/24 Range/Units 18:17 21:15 WBC 7.1 (4.5-10.0) K/mm3 RBC 5.03 (4.6-6.20) M/mm3 Hgb 15.9 (14.0-18.0) g/dL Hct 47.1 (42.0-52.0) % MCV 93.6 (80-100) fl MCH 31.6 (26-34) pg MCHC 33.8 (32-36) g/dl RDW 12.2 (11.5-14.5) % Plt Count 187 (150-375) k/mm3 MPV 10.1 (7.4-10.4) fl Immature Gran % (Auto) 0.3 (0-0.5) % Neut % (Auto) 65.6 (45.5-73.1) % Lymph % (Auto) 22.3 (18.3-44.2) % Walsh % (Auto) 7.2 (2.6-8.5) % Eos % (Auto) 3.9 (0-4.4) % Baso % (Auto) 0.7 (0.2-1.2) % Lymph # (Auto) 1.59 (0.9-3.2) K/mm3 Walsh # (Auto) 0.5 (0.1-0.6) K/mm3 Eos # (Auto) 0.3 (0-0.3) K/mm3 Baso # (Auto) 0.1 (0.0-0.1) K/mm3 Abs Immat Gran (auto) 0.02 (0.00-0.031) K/mm3 Absolute Neuts (auto) 4.7 (1.3-6.7) K/mm3 Absolute Nucleated RBC 0.000 (0.0-0.012) K/mm3 Nucleated RBC % 0.0 (0.0-0.2) % PT 13.3 (11.1-14.7) Seconds INR 1.0 APTT 31.6 (22.3-36.8) Seconds Sodium 140 (137-145) mmol/L Potassium 4.1 (3.4-5.0) mmol/L Chloride 102 (98-107) mmol/L Carbon Dioxide 28 (22-30) mmol/L Anion Gap 10 (4-12) mmol/L BUN 18 (9-20) mg/dL Creatinine 1.01 (0.7-1.3) mg/dL Estim Creat Clear Calc 71 ml/min Estimated GFR > 60 (59 - ) Glucose 89 (65-110) mg/dL Calcium 9.6 (8.4-10.2) mg/dL Magnesium 2.1 (1.6-2.3) mg/dL Total Bilirubin 1.4 H (0.2-1.3) mg/dL AST 39 (17-59) U/L ALT 74 H (6-50) U/L Alkaline Phosphatase 74 (38-126) U/L Troponin I < 0.012 < 0.012 (0.000-0.034) ng/mL NT-Pro-B Natriuret Pep 111 H (19.9-100) pg/mL Total Protein 8.0 (6.3-8.2) g/dL Albumin 4.5 (3.5-5.1) g/dL TSH (Reflex) 2.760 (0.465-4.68) uIU/mL Urine Color Yellow (Yellow) Urine Appearance Clear (Clear) Urine pH 5.5 (5.0-9.0) Ur Specific [place] 1.019 (1.001-1.035) Urine Protein Negative (Negative) mg/dL Urine Glucose (UA) Negative (Negative) mg/dL Urine Ketones Negative (Negative) mg/dL Ur Blood (Man) Negative (Negative) Urine Nitrate Negative (Negative) Urine Bilirubin Negative (Negative) Urine Urobilinogen 0.2 (<2.0) mg/dL Leukocyte Esterase Rfl Negative (Negative) JESSICA/UL Influenza A (RT-PCR) Negative (Negative) Influenza B (RT-PCR) Negative (Negative) RSV (RT-PCR) Negative (Negative) SARS-CoV-2 RNA (RT-PCR) Negative (Negative) <Shannan Benitez, SYSTEM DEVELOPMENT MANAGER - Last Filed: 05/26/24 17:34> Lab Results 05/26/24 05/26/24 Range/Units 18:17 21:15 WBC 7.1 (4.5-10.0) K/mm3 RBC 5.03 (4.6-6.20) M/mm3 Hgb 15.9 (14.0-18.0) g/dL Hct 47.1 (42.0-52.0) % MCV 93.6 (80-100) fl MCH 31.6 (26-34) pg MCHC 33.8 (32-36) g/dl RDW 12.2 (11.5-14.5) % Plt Count 187 (150-375) k/mm3 MPV 10.1 (7.4-10.4) fl Immature Gran % (Auto) 0.3 (0-0.5) % Neut % (Auto) 65.6 (45.5-73.1) % Lymph % (Auto) 22.3 (18.3-44.2) % Walsh % (Auto) 7.2 (2.6-8.5) % Eos % (Auto) 3.9 (0-4.4) % Baso % (Auto) 0.7 (0.2-1.2) % Lymph # (Auto) 1.59 (0.9-3.2) K/mm3 Walsh # (Auto) 0.5 (0.1-0.6) K/mm3 Eos # (Auto) 0.3 (0-0.3) K/mm3 Baso # (Auto) 0.1 (0.0-0.1) K/mm3 Abs Immat Gran (auto) 0.02 (0.00-0.031) K/mm3 Absolute Neuts (auto) 4.7 (1.3-6.7) K/mm3 Absolute Nucleated RBC 0.000 (0.0-0.012) K/mm3 Nucleated RBC % 0.0 (0.0-0.2) % PT 13.3 (11.1-14.7) Seconds INR 1.0 APTT 31.6 (22.3-36.8) Seconds Sodium 140 (137-145) mmol/L Potassium 4.1 (3.4-5.0) mmol/L Chloride 102 (98-107) mmol/L Carbon Dioxide 28 (22-30) mmol/L Anion Gap 10 (4-12) mmol/L BUN 18 (9-20) mg/dL Creatinine 1.01 (0.7-1.3) mg/dL Estim Creat Clear Calc 71 ml/min Estimated GFR > 60 (59 - ) Glucose 89 (65-110) mg/dL Calcium 9.6 (8.4-10.2) mg/dL Magnesium 2.1 (1.6-2.3) mg/dL Total Bilirubin 1.4 H (0.2-1.3) mg/dL AST 39 (17-59) U/L ALT 74 H (6-50) U/L Alkaline Phosphatase 74 (38-126) U/L Troponin I < 0.012 < 0.012 (0.000-0.034) ng/mL NT-Pro-B Natriuret Pep 111 H (19.9-100) pg/mL Total Protein 8.0 (6.3-8.2) g/dL Albumin 4.5 (3.5-5.1) g/dL TSH (Reflex) 2.760 (0.465-4.68) uIU/mL Urine Color Yellow (Yellow) Urine Appearance Clear (Clear) Urine pH 5.5 (5.0-9.0) Ur Specific [place] 1.019 (1.001-1.035) Urine Protein Negative (Negative) mg/dL Urine Glucose (UA) Negative (Negative) mg/dL Urine Ketones Negative (Negative) mg/dL Ur Blood (Man) Negative (Negative) Urine Nitrate Negative (Negative) Urine Bilirubin Negative (Negative) Urine Urobilinogen 0.2 (<2.0) mg/dL Leukocyte Esterase Rfl Negative (Negative) JESSICA/UL Influenza A (RT-PCR) Negative (Negative) Influenza B (RT-PCR) Negative (Negative) RSV (RT-PCR) Negative (Negative) SARS-CoV-2 RNA (RT-PCR) Negative (Negative) <Aaron Osman MD - Last Filed: 05/26/24 22:04> Discharge Plan Discharge Clinical Impression: Generalized weakness, Atypical chest pain <Shannan Benitez APRN - Last Filed: 05/26/24 17:34> Patient Disposition: Home, Self-Care <Shannan Benitez APRN - Last Filed: 05/26/24 17:34> Condition: Stable <Shannan Benitez APRN - Last Filed: 05/26/24 17:34> Instructions: Antibiotic Form, Chest Pain (ED), Weakness (ED) <Shannan Benitez APRN - Last Filed: 05/26/24 17:34> Patient Language: Ghanaian <Shannan Benitez APRN - Last Filed: 05/26/24 17:34> Prescriptions: No Action atorvastatin [Lipitor] 80 mg tablet 80 mg PO DAILY metoprolol succinate [Toprol XL] 50 mg tablet extended release 24 hr 50 mg PO DAILY Brilinta 90 mg tablet 90 mg PO Q12H aspirin [Adult Low Dose Aspirin] 81 mg tablet,delayed release (DR/EC) 81 mg PO DAILY vitamin I33-swjhp acid 2,500-400 mcg tablet,disintegrating PO DAILY ferrous sulfate 325 mg (65 mg iron) tablet 325 mg PO DAILY <Shannan Benitez APRN - Last Filed: 05/26/24 17:34> Follow-up/Referrals: Harms,Flash De Guzman M.D. [Primary Care Provider] - <Shannan Benitez APRN - Last Filed: 05/26/24 17:34> Time of Disposition: 22:04 <Shannan Benitez APRN - Last Filed: 05/26/24 17:34> 22:04 <Aaron Osman MD - Last Filed: 05/26/24 22:04>
[2024-05-26 18:20] VITALS: PULSE 58
[2024-05-26 18:21] VITALS: BP 172/84; PULSE 53; RESP 16; TEMP 36.9; O2SAT 100
[2024-05-26 18:26] LABS: Basophils Absolute Auto 0.1 K/mm3 (0.0-0.1); Basophils Percent Auto 0.7 % (0.2-1.2); Eosinophils Absolute Auto 0.3 K/mm3 (0-0.3); Eosinophils Percent Auto 3.9 % (0-4.4); Hematocrit 47.1 % (42.0-52.0); Hemoglobin 15.9 g/dL (14.0-18.0); Immature Granulocyte Absolute 0.02 K/mm3 (0.00-0.031); Immature Granulocyte Percent A 0.3 % (0-0.5); Lymphocytes Absolute Auto 1.59 K/mm3 (0.9-3.2); Lymphocytes Percent Auto 22.3 % (18.3-44.2); Mean Corpuscular HGB Conc 33.8 g/dl (32-36); Mean Corpuscular Hemoglobin 31.6 pg (26-34); Mean Corpuscular Volume 93.6 fl (80-100); Mean Platelet Volume 10.1 fl (7.4-10.4); Monocytes Absolute Auto 0.5 K/mm3 (0.1-0.6); Monocytes Percent Auto 7.2 % (2.6-8.5); Neutrophils Absolute Auto 4.7 K/mm3 (1.3-6.7); Neutrophils Percent Auto 65.6 % (45.5-73.1); Platelet Count Result 187 k/mm3 (150-375); Red Blood Count 5.03 M/mm3 (4.6-6.20); Red Cell Distribution Width 12.2 % (11.5-14.5); White Blood Count 7.1 K/mm3 (4.5-10.0)
[2024-05-26 18:28] LABS: Add Urine Microscopic? NO; Appearance Urine Clear (Clear); Bilirubin Urine Negative (Negative); Blood Urine Negative (Negative); Color Urine Yellow (Yellow); Glucose Urine UA Negative (Negative); Ketones Urine Negative (Negative); Leukocyte Esterase Ur Negative LEU/UL (Negative); Nitrate Urine Negative (Negative); Protein Urine Negative (Negative); Specific Grav Ur 1.019 (1.001-1.035); Urobilinogen Urine 0.2 mg/dL (<2.0); pH Urine 5.5 (5.0-9.0)
[2024-05-26 18:37] LABS: Prothrombin Time 13.3 Seconds (11.1-14.7)
[2024-05-26 18:38] LABS: Partial Thromboplastin Time 31.6 Seconds (22.3-36.8)
[2024-05-26 18:46] LABS: Alanine Aminotransferase 74 U/L (6-50); Albumin Level 4.5 g/dL (3.5-5.1); Alkaline Phosphatase 74 U/L (38-126); Anion Gap 10 mmol/L (4-12); Aspartate Amino Transferase 39 U/L (17-59); Bilirubin,Total 1.4 mg/dL (0.2-1.3); Blood Urea Nitrogen 18 mg/dL (9-20); Calcium 9.6 mg/dL (8.4-10.2); Carbon Dioxide 28 mmol/L (22-30); Chloride 102 mmol/L (98-107); Estimated CRCL calculation 71 ml/min; Estimated Glomerular Filt Rate > 60; Glucose 89 mg/dL (65-110); Magnesium 2.1 mg/dL (1.6-2.3); Potassium 4.1 mmol/L (3.4-5.0); Sodium 140 mmol/L (137-145)
[2024-05-26 18:52] LABS: NT Pro B Type Natriuretic Pept 111 pg/mL (19.9-100); Troponin I < 0.012 ng/mL (0.000-0.034)
[2024-05-26 19:03] LABS: Influenza A QL RT-PCR Negative (Negative); Influenza B QL RT-PCR Negative (Negative); RSV RNA, RT-PCR Negative (Negative); SARS-CoV-2 RNA PCR Negative (Negative)
--- NOTE | 2024-05-26 19:30 | ECG_ITS ---
Test Date: 2024-05-26 21:19:47 Measurements Intervals [place] Rate: 45 P: -1 LA: 208 QRS: -36 QRSD: 179 T: -5 QT: 474 QTc: 414 Interpretive Statements SINUS BRADYCARDIA MARKED LEFT AXIS DEVIATION [QRS AXIS < -30] RIGHT BUNDLE BRANCH BLOCK [120+ ms QRS DURATION, UPRIGHT V1, 40+ ms S IN I/aVL/V4/V5/V6] Compared to ECG 05/26/2024 17:27:45 No significant changes Electronically Signed On 05-26-2024 23:43:41 THEATER PROJECTIONIST by Kwabena Carrillo M.D.
--- OUTSIDE RECORDS SUMMARY | 2024-05-26 20:01 | XMS_ITS | Encounter Summary ---
Author Organization [facility] Address [address] [place] [address] Care Team Providers Care Leasing Professional Name Role Phone Flash Horner MD Primary Care Provider [phone] Sandro Samaniego MD Unavailable [phone] Encounter Details Date Type Department Care Team (Late st Contact Info) Description 09/04/2016 Orders Only [facility] Antoni Goetz MD [address] [place] [id number] Social History Tobacco Use Types Packs/Day Years Used Date Smoking Tobacco: Never Alcohol Use Standard Drinks/Week Comments No 0 (1 standard drink = 0.6 oz pur e alcohol) Sex and Gender Information Value Date Recorded Sex Assigned at Not on file 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
--- OUTSIDE RECORDS SUMMARY | 2024-05-26 20:01 | XMS_ITS | Referral Summary ---
Author Organization [facility] [address] Address [address] [place] [address] Care Team Providers Care Electron Beam Photo Mask Technician Name Role Phone Flash Horner MD Primary Care Provider [phone] Sandro Samaniego MD Unavailable [phone] Encounters Date Type Department Care Team Description 02/24/2024 Telephone [facility] [address] [place] [address] Flash Horner MD from Last [...] Problem Noted Date Diagnosed Date Unstable angina ([facility]) 07/21/2023 Chest pain, unspecified type 07/19/2023 Coronary artery disease invo lving [place] coronary artery of [place] heart with unstable angina pectoris 07/19/2023 Chest pain 07/10/2023 Elevated blood pressure reading 07/10/2023 Assessment & Plan (07/10/2023 11:16 AM MILK PICKUP DRIVER): Today in office BP reading manually was [...] & Plan (10/07/2021 9:27 AM CDT): 07/14/19 AH=504 HDL=53 FW=425 CGX=000 TC/HDL=4.0 07/05/20 KM=849 HDL=65 TG=60 EDI=155 TC/HDL=3.3 01/16/21 UW=632 HDL=57 TG=78 UUN=773 TC/HDL=4.0 WQCHVG=141 10/03/21 EG=812 HDL=60 TG=71 JZP=436 TC/HDL=3.1 WRHGKY=000 Copy of results from 10/03/21 given to Nuno Mcgrath. Reviewed results at time of appointment. Atorvastatin 10mg daily. Patient should focus on limiting bad fats in the diet and using exercise as a way to improve the lipid status. Secondary prevention. Reviewed medications. Denies any statin Ses. Reviewed diet/exercise recommendations. Reviewed red flags. Assessment & Plan (07/17/2021 9:05 AM CDT): 07/11/18 WL=628, HDL=61 GY=735 ONM=989 TC/HDL=4.0 07/14/19 NY=330 HDL=53 XD=267 QSY=666 TC/HDL=4.0 07/05/20 MG=301 HDL=65 TG=60 VLQ=230 TC/HDL=3.3 01/16/21 KU=648 HDL=57 TG=78 ALZ=319 TC/HDL=4.0 PKNWPU=246 Atorvastatin 10mg sent 01/2021 appt. Has not been taking. Reviewed increasing LDL/TC. Agreeable to restart atorvastatin 10mg daily. Reviewed diet. Not to get diet info off of [employer] but more reliable source such as [place] [employer], [facility], [place] [employer]. Assessment & Plan (01/16/2021 8:48 AM CDT): 07/14/19 WC=681 HDL=53 JM=950 DHC=085 TC/HDL=4.0 07/05/20 AH=397 HDL=65 TG=60 ZWJ=992 TC/HDL=3.3 01/16/21 YQ=378 HDL=57 TG=78 OOQ=768 TC/HDL=4.0 YDNTJX=442 Atorvastatin 10mg sent. Patient should focus on limiting bad fats in the diet and using exercise as a way to improve the lipid status. Secondary prevention. Reviewed medications. Lipid panel ordered; will call w/results when rec'd. Denies any statin Ses. Reviewed diet/exercise recommendations. Reviewed red flags. The 10-year ASCVD risk score ([place] PATRICK Jr., et al., 2013) is: 9.7% [...] 21 Assessment & Plan (07/11/2020 9:13 AM MILK PICKUP DRIVER): Dances for exercise. Discussed healthy diet and importance of regular physical activity. BMI is acceptable for this patient. LLQ abdominal pain 07/11/2020 2 Assessment & Plan (07/11/2020 9:36 AM MILK PICKUP DRIVER): CT abd/pelvis w contrast ordered. [facility]. Aware that traffic control officer will call for authorization & call him one it is approved/denied. Discussed inguinal hernias: lowrjmse-ee-soqdso symptoms from an inguinal hernia, surgical repair [...] healthier, we can set up appointment with finishing and shipping supervisor/senior oracle pl sql developer. 3. Have an active lifestyle, strive for [...] 01/16/2021 Assessment & Plan (07/11/2020 9:13 AM MILK PICKUP DRIVER): Copy of results given to Nuno Mcgrath. Reviewed results at time of appointment 07/11/20 07/11/18 UN=843, HDL=61 IS=477 VID=059 TC/HDL=4.0 07/14/19 NO=237 HDL=53 IH=648 MSG=735 TC/HDL=4.0 07/05/20 MG=817 HDL=65 TG=60 APB=022 TC/HDL=3.3 Reviewed diet changes to improve TC/LDL [...] 07/11/2018 TRIG 114 07/14/2019 TRIG 106 07/11/2018 XAB=571 07/11/18 ZOE=579 07/14/19 Has since lost 33# since that [...] drink = 0.6 oz pur e alcohol) [facility] Utilities Answer Date Recorded In the past 12 months has [employer], gas, oil, or water [employer] threatened to shut off services in your [...] often do you attend chur ch or amish services? More than 4 times per year 07/20/2023 Do you belong to any clubs o r organizations such as buddhist groups, unions, fraternal or athletic groups, or [...] place to sleep or slept in a intermediate (including now)? No 07/20/2023 Personal Safety Answer [...] on file Legal Sex Male 12:49 PM MILK PICKUP DRIVER Gender Identity Male 01/09/2021 7:16 AM CDT [...] on file Medical Devices Implanted Type Area Cashier Checker Device Identifier Shelf Expiration Date Model / Serial / Lot Cordis Mynxgrip 5fr Balloon Catheter Integrate Sealant Lock Latex Free [id number] - [id number] Implanted:Qty: 1 on 07/21/2023 by Sandro Samaniego MD at [facility] Other - see comments Right: Groin Cordis 10/30/2024 [id number] / / [id number] Cordis Mynxgrip 6-7fr Balloon Catheter Integrate Sealant Lock Latex Free [id number] - [id number] Implanted:Qty: 1 on 07/22/2023 by Tangela Dotson MD at [facility] Other - see comments Cordis 03/02/2025 [id number] / / [id number] [place] [employer]acho Stent Coronary Drug Eluting Rapid Exchange Synergy Xd 2.50e82te [place] Chromium [id number] - [id number] Implanted:Qty: 1 on 07/22/2023 by Tangela Dotson MD at [facility] Stent [place] [employer] 06/28/2024 [id number] / / [id number] [place] [employer] Synergy Xd Monorail 3mm 20mm 144cm Delivery System 1 Access Port [id number] - [id number] Implanted:Qty: 1 on 07/22/2023 by Tangela Dotson MD at [facility] Stent [place] [employer] 01/24/2025 [id number] / / [id number] [place] [employer] Synergy Xd Monorail 2.75mm 38mm 144cm Delivery System 1 Access [id number] - [id number] Implanted:Qty: 1 on 07/23/2023 by Tangela Dotson MD at [facility] Stent [place] [employer] 12/29/2023 [id number] / / Cordis Mynxgrip 5fr Balloon Catheter Integrate Sealant Lock Latex Free [id number] - [id number] Implanted:Qty: 1 on 07/23/2023 by Tangela Dotson MD at [facility] Cordis 06/02/2025 [id number] / / [id number] Procedures Procedure Name Priority Date/Time Associated Diagnosis Comments PSA SCREEN Routine 02/22/2023 9:10 AM CDT Prostate cancer screening STOOL DNA ? COLOGUARD Routine 09/21/2021 8:01 AM CDT Colon cancer screening from Last 3 Months or Most Recently Relevant to Health Maintenance Results * PSA screen (02/22/2023 9:10 AM CDT) Pathologist [facility] PSA-Total 0.73 <=5.40 ng/mL TEMO QUITA ([place]) [...] data last revised 21. Testing performed by: [facility], [address] [place] [address]., [id number] Blood 02/22/2023 9:10 AM CDT 02/22/2023 12:05 PM CDT Alicia Sherman NP LAB BLOOD ORDERABLES Final Result [facility] ([place]) 1 [facility] [place] [address] * Stool DNA - Cologuard (09/21/2021 8:01 AM CDT) [facility] [address] [facility] Stool DNA - Cologuard Negative Negative [facility] (CLIA #:[id number]) Comment: NEGATIVE TEST RESULT. A negative Cologuard [...] cancer. ??Following a negative Cologuard result, the [place] [employer] Society and U.S. Multi-Society Task Force screening guidelines recommend a Cologuard re-screening interval of 3 years. References: [place] [employer] Guideline for Colorectal Cancer Screening: https://www.cancer.org/cancer/zoxwm-gzzzry-feomwu/mcwmxiocc-vieaywssr-qciarqv/ac s-rec ommendations.html.; Carlos DK, Cesar CR, Mena FonsecaK, Colorectal Cancer Screening: Recommendations for Physicians and Patients from the U.S. Multi-Society Task Force on Colorectal Cancer Screening , Am J Gastroenterology 2017; 112:0527-1317. TEST DESCRIPTION: Composite algorithmic analysis of stool [...] (Eric Tyler al, N Engl J Med 2014;370(14):6388-6540.) Cologuard may produce a false negative or false positive result (no colorectal cancer or precancerous polyp present at colonoscopy follow up). A negative Cologuard test result does not guarantee the absence of CRC or advanced adenoma (pre-cancer). The current Cologuard screening interval is every 3 years. ([place] [employer] Society and U.S. Multi-Society Task Force). Cologuard performance data in a 10,000 patient pivotal study using colonoscopy as the reference method can be accessed at the following location: www.[employer]/results. Additional description of the Cologuard test process, warnings and precautions can be found at www.[employer].com. Stool 09/21/2021 8:0 1 AM CDT 09/23/2021 11:54 AM CDT us Carmen Upton NP LAB BODY FLUIDS AND STOOL S ORDERABLES Final Result [email or web address] (CLIA #:[id number]) [address] [place] [address] from Last 3 Months or Most Recently Relevant to Health Maintenance Insurance [facility] Advance Directives For more information, please contact: [phone] * Full Code (Latest Code Status on File) Date Activated Date Inactivated Comments 07/19/2023 2:31 PM 07/24/2023 5:10 PM Care Teams Electron Beam Photo Mask Technician Relationship Specialty Start Date End Date Flash Horner MD [address] [place] [address] PCP - General 09/04/16 Sandro Samaniego MD [address] [place] [address] [place] [address] Consulting Physician Cardiovascular Disease 07/24/23
--- OUTSIDE RECORDS SUMMARY | 2024-05-26 20:01 | XMS_ITS | Clinical Summary ---
Author Organization [facility] [address] [facility] Address [address] [place] [address] Care Team Providers Care Medical Sales Consultant Name Role Phone Flash Horner MD Primary Care Provider [phone] Sandro Samaniego MD Unavailable [phone] Allergies Active Allergy Reactions Criticality Noted Date [...] Problem Noted Date Diagnosed Date Unstable angina ([facility]) 07/21/2023 Chest pain, unspecified type 07/19/2023 Coronary artery disease invo lving [place] coronary artery of [place] heart with unstable angina pectoris 07/19/2023 Chest pain 07/10/2023 Elevated blood pressure reading 07/10/2023 Assessment & Plan (07/10/2023 11:16 AM JOB COACH): Today in office BP reading manually was [...] & Plan (10/07/2021 9:27 AM CDT): 07/14/19 HD=043 HDL=53 PK=335 AFP=443 TC/HDL=4.0 07/05/20 NB=687 HDL=65 TG=60 NWN=895 TC/HDL=3.3 01/16/21 UJ=915 HDL=57 TG=78 BMO=995 TC/HDL=4.0 KLQEXH=791 10/03/21 VK=324 HDL=60 TG=71 JNV=600 TC/HDL=3.1 EAZSYL=964 Copy of results from 10/03/21 given to Nuno Mcgrath. Reviewed results at time of appointment. Atorvastatin 10mg daily. Patient should focus on limiting bad fats in the diet and using exercise as a way to improve the lipid status. Secondary prevention. Reviewed medications. Denies any statin Ses. Reviewed diet/exercise recommendations. Reviewed red flags. Assessment & Plan (07/17/2021 9:05 AM CDT): 07/11/18 ZX=035, HDL=61 MN=102 ZJW=110 TC/HDL=4.0 07/14/19 PI=293 HDL=53 JK=567 ZPZ=096 TC/HDL=4.0 07/05/20 HY=347 HDL=65 TG=60 BFC=568 TC/HDL=3.3 01/16/21 XA=712 HDL=57 TG=78 SEN=141 TC/HDL=4.0 QEHYLL=908 Atorvastatin 10mg sent 01/2021 appt. Has not been taking. Reviewed increasing LDL/TC. Agreeable to restart atorvastatin 10mg daily. Reviewed diet. Not to get diet info off of mySchoolNotebook but more reliable source such as [place] [employer], [facility], [place] [employer]. Assessment & Plan (01/16/2021 8:48 AM CDT): 07/14/19 HI=694 HDL=53 CK=940 QJG=310 TC/HDL=4.0 07/05/20 KS=463 HDL=65 TG=60 NNS=864 TC/HDL=3.3 01/16/21 RJ=009 HDL=57 TG=78 VGE=157 TC/HDL=4.0 BFBBLX=571 Atorvastatin 10mg sent. Patient should focus on [...] 21 Assessment & Plan (07/11/2020 9:13 AM JOB COACH): Dances for exercise. Discussed healthy diet and importance of regular physical activity. BMI is acceptable for this patient. LLQ abdominal pain 07/11/2020 Assessment & Plan (07/11/2020 9:36 AM JOB COACH): CT abd/pelvis w contrast ordered. [facility]. Aware that account officer will call for authorization & call him one it is approved/denied. Discussed inguinal hernias: lhapwudj-er-heviin symptoms from an inguinal hernia, surgical repair [...] healthier, we can set up appointment with loan manager/media supervisor. 3. Have an active lifestyle, strive for [...] 01/16/2021 Assessment & Plan (07/11/2020 9:13 AM JOB COACH): Copy of results given to Nuno Mcgrath. Reviewed results at time of appointment 07/11/20 07/11/18 PC=704, HDL=61 QB=442 XOB=065 TC/HDL=4.0 07/14/19 QZ=025 HDL=53 YE=122 GSB=368 TC/HDL=4.0 07/05/20 XJ=227 HDL=65 TG=60 RAQ=088 TC/HDL=3.3 Reviewed diet changes to improve TC/LDL [...] 07/11/2018 TRIG 114 07/14/2019 TRIG 106 07/11/2018 MDD=266 07/11/18 HVN=995 07/14/19 Has since lost 33# since that [...] Care Team Description 02/24/2024 Telephone [facility] [address] [place] [address] Flash Horner MD from Last [...] drink = 0.6 oz pur e alcohol) [facility] Utilities Answer Date Recorded In the past 12 months has [employer], gas, oil, or water [employer] threatened to shut off services in your [...] week 07/20/2023 How often do you attend [facility] or pentecostal services? More than 4 times per year 07/20/2023 Do you belong to any clubs o r organizations such as orthodoxy groups, unions, fraternal or athletic groups, or [...] place to sleep or slept in a detention (including now)? No 07/20/2023 Personal Safety Answer [...] on file Legal Sex Male 12:49 PM JOB COACH Gender Identity Male 01/09/2021 7:16 AM CDT [...] history exists Medical Devices Implanted Type Area Med Spa Manager Device Identifier Shelf Expiration Date Model / Serial / Lot Cordis Mynxgrip 5fr Balloon Catheter Integrate Sealant Lock Latex Free [id number] - [id number] Implanted:Qty: 1 on 07/21/2023 by Sandro Samaniego MD at [facility] Other - see comments Right: Groin Cordis 10/30/2024 [id number] / / [id number] Cordis Mynxgrip 6-7fr Balloon Catheter Integrate Sealant Lock Latex Free [id number] - [id number] Implanted:Qty: 1 on 07/22/2023 by Tangela Dotson MD at [facility] Other - see comments Cordis 03/02/2025 [id number] / / [id number] [employer] Chacho Stent Coronary Drug Eluting Rapid Exchange Synergy Xd 2.32u07oz Qagan [place] Chromium [id number] - [id number] Implanted:Qty: 1 on 07/22/2023 by Tangela Dotson MD at [facility] Stent [employer] 06/28/2024 [id number] / / [id number] [employer] Synergy Xd Monorail 3mm 20mm 144cm Delivery System 1 Access Port [id number] - [id number] Implanted:Qty: 1 on 07/22/2023 by Tangela Dotson MD at [facility] Stent [employer] 01/24/2025 [id number] / / [id number] [employer] Synergy Xd Monorail 2.75mm 38mm 144cm Delivery System 1 Access [id number] - [id number] Implanted:Qty: 1 on 07/23/2023 by Tangela Dotson MD at [facility] Stent [employer] 12/29/2023 [id number] / / Cordis Mynxgrip 5fr Balloon Catheter Integrate Sealant Lock Latex Free [id number] - [id number] Implanted:Qty: 1 on 07/23/2023 by Tangela Dotson MD at [facility] Cordis 06/02/2025 [id number] / / [id number] Procedures Procedure Name Priority Date/Time Associated Diagnosis Comments PSA SCREEN Routine 02/22/2023 9:10 AM CDT Prostate cancer screening STOOL DNA ? COLOGUARD Routine 09/21/2021 8:01 AM CDT Colon cancer screening from Last 3 Months or Most Recently Relevant to Health Maintenance Results * PSA screen (02/22/2023 9:10 AM CDT) Pathologist [facility] PSA-Total 0.73 <=5.40 ng/mL TEMO DEVLIN ([place]AN) Comment: Interpretive Data ?AGE ? SEX ?REFERENCE [...] last revised 21. Testing performed by: [facility], [address] [place] [address]., [id number] Blood 02/22/2023 9:10 AM CDT 02/22/2023 12:05 PM CDT us Alicia Sherman NP LAB BLOOD ORDERABLES Final Result Performing Organization Address City/State/[facility] Co de Phone Number [id number] ([place]AN) [address] [facility] Department [place] [address] * Stool DNA - Cologuard (09/21/2021 8:01 AM CDT) Pathologist [facility] Stool DNA - Cologuard Negative Negative [facility] (CLIA #:[id number]) Comment: NEGATIVE TEST RESULT. A negative Cologuard [...] cancer. ??Following a negative Cologuard result, the [place] Cancer Society and U.S. Multi-Society Task Force screening guidelines recommend a Cologuard re-screening interval of 3 years. References: [place] [employer] Guideline for Colorectal Cancer Screening: https://www.cancer.org/cancer/axyvn-acnpbr-xdizzv/sukqtjvvm-riawvbnfn-twkrkhl/ac s-rec ommendations.html.; Carlos DK, Cesar ASH, Mena FonsecaK, Colorectal Cancer Screening: Recommendations for Physicians and Patients from the U.S. Multi-Society Task Force on Colorectal Cancer Screening , Am J Gastroenterology 2017; 112:0578-9709. TEST DESCRIPTION: Composite algorithmic analysis of stool [...] Rai. vielka al, N Engl J Med 2014;370(14):2835-7590.) Cologuard may produce a false negative or false positive result (no colorectal cancer or precancerous polyp present at colonoscopy follow up). A negative Cologuard test result does not guarantee the absence of CRC or advanced adenoma (pre-cancer). The current Cologuard screening interval is every 3 years. ([place] [employer] Society and U.S. Multi-Society Task Force). Cologuard performance data in a 10,000 patient pivotal study using colonoscopy as the reference method can be accessed at the following location: www.wooju/results. Additional description of the Cologuard test process, warnings and precautions can be found at www.cologuard.NantWorks. Stool 09/21/2021 8:01 AM CDT 09/23/2021 11:54 AM CDT us Carmen Upton CASINO DEALER LAB BODY FLUIDS AND STOOL S ORDERABLES Final Result Performing Organization Address City/State/[facility] Co de Phone Number [phone] (CLIA #:[id number]) [address] [place] [address] from Last 3 Months or Most Recently Relevant to Health Maintenance Insurance [facility] Advance Directives For more information, please contact: [phone] * Full Code (Latest Code Status on File) Date Activated Date Inactivated Comments 07/19/2023 2:31 PM 07/24/2023 5:10 PM Care Teams Medical Sales Consultant Relationship Specialty Start Date End Date Flash Horner MD [address] [place] [address] PCP - General 09/04/16 Sandro Samaniego MD [address] [place] [address] Consulting Physician Cardiovascular Disease 07/24/23
[2024-05-26 20:43] VITALS: BP 147/91; PULSE 50; RESP 16; TEMP 36.6; O2SAT 100
[2024-05-26 21:42] LABS: Troponin I < 0.012 ng/mL (0.000-0.034)
== END 2024-05-26 22:11 | disposition home or self-care (01) ==
PROVIDERS: Registered Nurse; Emergency Provider Emergency Medicine; PCP Family Medicine
DX: R07.89 Other chest pain (principal); R53.1 Weakness; Z20.822 Contact with and (suspected) exposure to COVID-19; E66.3 Overweight; Z68.29 Body mass index [BMI] 29.0-29.9, adult; Z87.891 Personal history of nicotine dependence; Z79.82 Long term (current) use of aspirin; Z79.899 Other long term (current) drug therapy; Z79.02 Long term (current) use of antithrombotics/antiplatelets; Z95.5 Presence of coronary angioplasty implant and graft; R00.1 Bradycardia, unspecified; I45.10 Unspecified right bundle-branch block
CPT/HCPCS: 36415; 71046; 80053; 81003; 83735; 83880; 84443; 84484; 85025; 85610; 85730; 87637; 93005; 99284

== ENCOUNTER 2024-10-20 18:23 | Emergency (ER) | payer OTHER, SELFPAY ==
--- NOTE | ~2024-10-20 | XR_ITS ---
XR chest 1V Ordering provider: Mary Lou Pérez PA-C History: 63 years Male with . shoulder pain . Comparison: May 26, 2024 FINDINGS: MEDIASTINUM: The cardiac silhouette is not enlarged. LUNGS: No infiltrates, effusions or pneumothorax. OTHER: No free air under the diaphragm. IMPRESSION: No acute cardiopulmonary pathology. Reviewed, dictated and finalized at location A.
--- NOTE | ~2024-10-20 | XR_ITS ---
XR shoulder LT min 2V Ordering provider: Mary Lou Pérez PA-C History: . shoulder pain . Comparison: None. FINDINGS: BONES: No acute fracture or dislocation. JOINT SPACES: The acromioclavicular joint is normal. The glenohumeral joint is normal. SOFT TISSUES: Normal. IMPRESSION: No acute osseous abnormality left shoulder. Reviewed, dictated and finalized at location A.
--- NOTE | ~2024-10-20 | CT_ITS ---
History: Left shoulder pain PROCEDURE: CT cervical spine without intravenous contrast. COMPARISON: None TECHNIQUE: Multiple contiguous axial images of the cervical spine were performed without the administration of i ntravenous contrast. DLP: 408 mGy-cm FINDINGS: Preservation of the normal curvature of the cervical spine is identified. No acute fractures are present. The bilateral lung apices are unremarkable. No soft tissue abnormality is present. The airway is patent. Impression: No acute fracture. Reviewed, dictated and finalized at location A. Impression: No acute fracture.
[2024-10-20 18:55] VITALS: BP 152/71; PULSE 66; RESP 20; TEMP 36.3; O2SAT 99
--- NOTE | 2024-10-20 19:07 | ECG_ITS ---
Test Date: 2024-10-20 20:07:29 Measurements Intervals [place] Rate: 61 P: 33 IN: 196 QRS: -43 QRSD: 182 T: -4 QT: 446 QTc: 453 Interpretive Statements SINUS RHYTHM WITH OCCASIONAL VENTRICULAR PREMATURE COMPLEXES LEFT AXIS DEVIATION RIGHT BUNDLE BRANCH BLOCK BORDERLINE ST-T WAVE ABNORMALITY- ANTEROLATERAL LEADS ABNORMAL ECG Compared to ECG 05/26/2024 21:19:47 HEART RATE HAS INCREASED Ventricular premature complex(es) now present Electronically Signed On 10-20-2024 20:40:26 CDT by Mohit Castillo D.O.
--- NOTE | 2024-10-20 19:08 | ED_ITS ---
HPI - Extremity Injury (Upper) General Chief Complaint: Extremity Injury, Upper <Mary Lou Pérez PA-C - Last Filed: 10/20/24 19:11> Stated Complaint: left shoulder pain <Mary Lou Pérez PA-C - Last Filed: 10/20/24 19:11> Time Seen by Provider: 10/20/24 21:36 <Mary Lou Pérez PA-C - Last Filed: 10/20/24 19:11> Focused HPI: 63-year-old male with history of CAD s/p 3 stent placements presents to emergency department for left shoulder pain for the past week. Patient denies injury trauma. He is reporting pain to the posterior shoulder that is worse with abduction of the shoulder. He states today he developed numbness to the dorsum of his left hand over the 4th and 5th metacarpals which concerned him and prompted him to come to the ED. He states he is worried given his heart history that maybe his heart vs a pinched nerve. He denies any chest pain or shortness of breath. Denies neck pain or fevers. GENERAL: Well-appearing, well-nourished, and in no acute distress. HEAD: Normocephalic, atraumatic. NECK: No midline cervical spinous tenderness, crepitus, step-offs or deformities EXT: Minimal tenderness to the posterior proximal humerus with no overlying skin changes or deformity. Full active and passive range of motion of shoulder. Pain worse with abduction of shoulder. No overlying warmth or erythema, no edema. Negative Neer sign. Strength is 5/5 in BUE. Sensation is intact throughout CHEST: Clear to auscultation. ?No respiratory distress. HEART: Regular rate and rhythm.? NEURO: ?Alert and oriented x3. Patient screened in triage and initial orders placed.? ?Additional care and disposition to be based upon?diagnostic testing and treatment. <Mary Lou Pérez PA-C - Last Filed: 10/20/24 19:11> History of Present Illness HPI narrative: Patient is a 63-year-old gentleman presents emergency department chief complaint of left shoulder pain. Patient reports he has been having pain for the last week reports that it got worse today and reports he had some numbness over his 4th and 5th metacarpal the patient states the numbness has improved the patient states he has history of cardiac disease decided to come the emergency department because he was concerned given his prior history. <Aaron Osman MD - Last Filed: 10/21/24 00:11> Related Data Home Medications: Home Medications ?Medication ?Instructions ?Recorded ?Confirmed ?Last Taken ?Type aspirin 81 mg tablet,delayed 81 mg PO DAILY 08/10/23 06/23/24 05/26/24 History release (Adult Low Dose Aspirin) atorvastatin 80 mg tablet (Lipitor) 80 mg PO DAILY 08/10/23 06/23/24 05/26/24 History vitamin B12 2,500 mcg-folic acid tablet PO DAILY 08/10/23 06/23/24 05/26/24 History 400 mcg disintegrating tablet <Mary Lou Pérez PA-C - Last Filed: 10/20/24 19:11> Allergies/Adverse Reactions: Allergies Allergy/AdvReac Type Severity Reaction Status Date / Time cats Allergy Sneezing Uncoded 10/20/24 19:02 pollen Allergy Sneezing Uncoded 10/20/24 19:02 <Mary Lou Pérez PA-C - Last Filed: 10/20/24 19:11> Review of Systems 2 Review of Systems: A 10 system review of systems was completed on the patient and is negative except for what is stated in the HPI. Nursing and ancillary documentation was reviewed. <Aaron Osman MD - Last Filed: 10/21/24 00:11> [facility] Past Medical History Medical History: Medical History Encounter to establish care Encounter for other specified surgical aftercare Overweight (BMI 25.0-29.9) Left inguinal hernia <Mary Lou Pérez PA-C - Last Filed: 10/20/24 19:11> Surgical History Surgical History: Surgical History H/O inguinal hernia repair 01/08/22 History of appendectomy <Mary Lou Pérez PA-C - Last Filed: 10/20/24 19:11> Family History Family History: Family History Mother TIA (transient ischemic attack) Hypertension Father Diabetes mellitus <Mary Lou Pérez PA-C - Last Filed: 10/20/24 19:11> Social History Social History: Social History Smoking packs per day: 0.75 Smoking cigarettes per day: 15.0 Years smoked: 20 Smoking pack-years: 15.00 Smoking status: Former smoker Tobacco type: cigarettes Second hand tobacco smoke exposure: No Smoking end date: 05/03/92 Alcohol intake: current Alcohol use details: rarely Substance use: never Substance use type: does not use Do You Feel Safe in your Home?: Yes Lack of Transportation: No Lack of Food: Never True Current Housing: I Have Housing Concerned About Future Housing: No Difficulty Paying Gas/Electric Bills: No Difficulty Paying for Meds: No Currently Unemployed: No Education: High School Diploma/GED Difficulty w/ Childcare or Family Care: No Living arrangements: with family Occupation/Education: occupation 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 HEAD: Normocephalic, atraumatic. EYES: PERRLA and EOMI. ENT: Nares clear, no rhinorrhea or epistaxis. Mucous membranes moist. NECK: Supple. CHEST: Clear to auscultation. No respiratory distress. HEART: Regular rate and rhythm. No murmur heard. Normal peripheral pulses. ABDOMEN: Soft, nontender, nondistended, normal active bowel sounds. EXTREMITIES: Normal range of motion tenderness to palpation in the left lateral scapula and left shoulder. No edema. SKIN: Warm, dry, no rash. NEURO: No focal deficits. Alert and oriented x3. PSYCH: Normal mood and affect. <Aaron Osman MD - Last Filed: 10/21/24 00:11> Course Vital Signs Vital signs: Vital Signs Temperature 36.3 C L 10/20/24 18:55 Pulse Rate 66 10/20/24 18:55 Respiratory Rate 20 10/20/24 18:55 Blood Pressure 152/71 H 10/20/24 18:55 Pulse Oximetry 99 10/20/24 18:55 Oxygen Delivery Room Air 10/20/24 18:55 Temperature 36.3 C L 10/20/24 18:55 Pulse Rate 47 L 10/20/24 23:19 Respiratory Rate 18 10/20/24 23:19 Blood Pressure 144/67 H 10/20/24 23:19 Pulse Oximetry 100 10/20/24 23:19 Oxygen Delivery Room Air 10/20/24 18:55 <Mary Lou Pérez PA-C - Last Filed: 10/20/24 19:11> Vital Signs Temperature 36.3 C L 10/20/24 18:55 Pulse Rate 66 10/20/24 18:55 Respiratory Rate 20 10/20/24 18:55 Blood Pressure 152/71 H 10/20/24 18:55 Pulse Oximetry 99 10/20/24 18:55 Oxygen Delivery Room Air 10/20/24 18:55 Temperature 36.3 C L 10/20/24 18:55 Pulse Rate 47 L 10/20/24 23:19 Respiratory Rate 18 10/20/24 23:19 Blood Pressure 144/67 H 10/20/24 23:19 Pulse Oximetry 100 10/20/24 23:19 Oxygen Delivery Room Air 10/20/24 18:55 <Aaron Osman MD - Last Filed: 10/21/24 00:11> MDM - Extremity Injury (Upper) Lab Data Result diagrams: 10/20/24 20:14 10/20/24 20:14 <Mary Lou Pérez PA-C - Last Filed: 10/20/24 19:11> Labs: Lab Results 10/20/24 10/20/24 Range/Units 20:14 23:29 WBC 7.1 (4.5-10.0) K/mm3 RBC 4.48 L (4.6-6.20) M/mm3 Hgb 13.8 L (14.0-18.0) g/dL Hct 41.2 L (42.0-52.0) % MCV 92.0 (80-100) fl MCH 30.8 (26-34) pg MCHC 33.5 (32-36) g/dl RDW 12.5 (11.5-14.5) % Plt Count 158 (150-375) k/mm3 MPV 9.8 (7.4-10.4) fl Immature Gran % (Auto) 0.3 (0-0.5) % Neut % (Auto) 67.0 (45.5-73.1) % Lymph % (Auto) 20.8 (18.3-44.2) % Sullivan % (Auto) 6.9 (2.6-8.5) % Eos % (Auto) 4.4 (0-4.4) % Baso % (Auto) 0.6 (0.2-1.2) % Lymph # (Auto) 1.48 (0.9-3.2) K/mm3 Sullivan # (Auto) 0.5 (0.1-0.6) K/mm3 Eos # (Auto) 0.3 (0-0.3) K/mm3 Baso # (Auto) 0.0 (0.0-0.1) K/mm3 Abs Immat Gran (auto) 0.02 (0.00-0.031) K/mm3 Absolute Neuts (auto) 4.8 (1.3-6.7) K/mm3 Absolute Nucleated RBC 0.000 (0.0-0.012) K/mm3 Nucleated RBC % 0.0 (0.0-0.2) % PT 14.2 (11.1-14.7) Seconds INR 1.1 APTT 31.5 (22.3-36.8) Seconds Sodium 138 (137-145) mmol/L Potassium 3.7 (3.4-5.0) mmol/L Chloride 107 (98-107) mmol/L Carbon Dioxide 23 (22-30) mmol/L Anion Gap 8 (4-12) mmol/L BUN 18 (9-20) mg/dL Creatinine 0.98 (0.7-1.3) mg/dL Estim Creat Clear Calc 82 ml/min Estimated GFR > 60 (59 - ) Glucose 124 H (65-110) mg/dL Calcium 9.3 (8.4-10.2) mg/dL Total Bilirubin 1.3 (0.2-1.3) mg/dL AST 34 (17-59) U/L ALT 50 (6-50) U/L Alkaline Phosphatase 64 (38-126) U/L Troponin I < 0.012 < 0.012 (0.000-0.034) ng/mL Total Protein 7.0 (6.3-8.2) g/dL Albumin 4.1 (3.5-5.1) g/dL <Mary Lou Pérez PA-C - Last Filed: 10/20/24 19:11> Lab Results 10/20/24 10/20/24 Range/Units 20:14 23:29 WBC 7.1 (4.5-10.0) K/mm3 RBC 4.48 L (4.6-6.20) M/mm3 Hgb 13.8 L (14.0-18.0) g/dL Hct 41.2 L (42.0-52.0) % MCV 92.0 (80-100) fl MCH 30.8 (26-34) pg MCHC 33.5 (32-36) g/dl RDW 12.5 (11.5-14.5) % Plt Count 158 (150-375) k/mm3 MPV 9.8 (7.4-10.4) fl Immature Gran % (Auto) 0.3 (0-0.5) % Neut % (Auto) 67.0 (45.5-73.1) % Lymph % (Auto) 20.8 (18.3-44.2) % Sullivan % (Auto) 6.9 (2.6-8.5) % Eos % (Auto) 4.4 (0-4.4) % Baso % (Auto) 0.6 (0.2-1.2) % Lymph # (Auto) 1.48 (0.9-3.2) K/mm3 Sullivan # (Auto) 0.5 (0.1-0.6) K/mm3 Eos # (Auto) 0.3 (0-0.3) K/mm3 Baso # (Auto) 0.0 (0.0-0.1) K/mm3 Abs Immat Gran (auto) 0.02 (0.00-0.031) K/mm3 Absolute Neuts (auto) 4.8 (1.3-6.7) K/mm3 Absolute Nucleated RBC 0.000 (0.0-0.012) K/mm3 Nucleated RBC % 0.0 (0.0-0.2) % PT 14.2 (11.1-14.7) Seconds INR 1.1 APTT 31.5 (22.3-36.8) Seconds Sodium 138 (137-145) mmol/L Potassium 3.7 (3.4-5.0) mmol/L Chloride 107 (98-107) mmol/L Carbon Dioxide 23 (22-30) mmol/L Anion Gap 8 (4-12) mmol/L BUN 18 (9-20) mg/dL Creatinine 0.98 (0.7-1.3) mg/dL Estim Creat Clear Calc 82 ml/min Estimated GFR > 60 (59 - ) Glucose 124 H (65-110) mg/dL Calcium 9.3 (8.4-10.2) mg/dL Total Bilirubin 1.3 (0.2-1.3) mg/dL AST 34 (17-59) U/L ALT 50 (6-50) U/L Alkaline Phosphatase 64 (38-126) U/L Troponin I < 0.012 < 0.012 (0.000-0.034) ng/mL Total Protein 7.0 (6.3-8.2) g/dL Albumin 4.1 (3.5-5.1) g/dL <Aaron Osman MD - Last Filed: 10/21/24 00:11> Discharge Plan Discharge Clinical Impression: Acute pain of left shoulder <Mary Lou Pérez PA-C - Last Filed: 10/20/24 19:11> Patient Disposition: Home <Mary Lou Pérez PA-C - Last Filed: 10/20/24 19:11> Condition: Stable <Mary Lou Pérez PA-C - Last Filed: 10/20/24 19:11> Instructions: Antibiotic Form, Shoulder Sprain (ED) <Mary Lou Pérez PA-C - Last Filed: 10/20/24 19:11> Patient Language: Guyanese <Mary Lou Pérez PA-C - Last Filed: 10/20/24 19:11> Prescriptions: New orphenadrine citrate 100 mg tablet extended release 100 mg PO Q12H PRN (Reason: muscle pain) Qty: 30 0RF prednisone 20 mg tablet 40 mg PO DAILY 5 Days Qty: 10 0RF No Action atorvastatin [Lipitor] 80 mg tablet 80 mg PO DAILY aspirin [Adult Low Dose Aspirin] 81 mg tablet,delayed release (DR/EC) 81 mg PO DAILY vitamin Y63-jnohw acid 2,500-400 mcg tablet,disintegrating PO DAILY metoprolol succinate 25 mg tablet extended release 24 hr 25 mg PO DAILY Qty: 90 2RF Brilinta 90 mg tablet See Rx Instructions .ROUTE .COMPLEX Qty: 90 2RF Dose Instruction: TAKE 1 TABLET BY MOUTH EVERY 12 HOURS Rx Instructions: TAKE 1 TABLET BY MOUTH EVERY 12 HOURS <Mary Lou Pérez PA-C - Last Filed: 10/20/24 19:11> Follow-up/Referrals: Jennifer Phillips APRN [Primary Care Provider] - <Mary Lou Pérez PA-C - Last Filed: 10/20/24 19:11> Time of Disposition: 00:11 <Mary Lou Pérez PA-C - Last Filed: 10/20/24 19:11> 00:11 <Aaron Osman MD - Last Filed: 10/21/24 00:11>
[2024-10-20 20:19] LABS: Basophils Percent Auto 0.6 % (0.2-1.2); Eosinophils Absolute Auto 0.3 K/mm3 (0-0.3); Eosinophils Percent Auto 4.4 % (0-4.4); Hematocrit 41.2 % (42.0-52.0); Hemoglobin 13.8 g/dL (14.0-18.0); Immature Granulocyte Absolute 0.02 K/mm3 (0.00-0.031); Immature Granulocyte Percent A 0.3 % (0-0.5); Lymphocytes Absolute Auto 1.48 K/mm3 (0.9-3.2); Lymphocytes Percent Auto 20.8 % (18.3-44.2); Mean Corpuscular HGB Conc 33.5 g/dl (32-36); Mean Corpuscular Hemoglobin 30.8 pg (26-34); Mean Platelet Volume 9.8 fl (7.4-10.4); Monocytes Absolute Auto 0.5 K/mm3 (0.1-0.6); Monocytes Percent Auto 6.9 % (2.6-8.5); Neutrophils Absolute Auto 4.8 K/mm3 (1.3-6.7); Platelet Count Result 158 k/mm3 (150-375); Red Blood Count 4.48 M/mm3 (4.6-6.20); Red Cell Distribution Width 12.5 % (11.5-14.5); White Blood Count 7.1 K/mm3 (4.5-10.0)
[2024-10-20 20:28] LABS: INR 1.1; Prothrombin Time 14.2 Seconds (11.1-14.7)
[2024-10-20 20:29] LABS: Partial Thromboplastin Time 31.5 Seconds (22.3-36.8)
[2024-10-20 20:30] LABS: Alanine Aminotransferase 50 U/L (6-50); Albumin Level 4.1 g/dL (3.5-5.1); Alkaline Phosphatase 64 U/L (38-126); Anion Gap 8 mmol/L (4-12); Aspartate Amino Transferase 34 U/L (17-59); Bilirubin,Total 1.3 mg/dL (0.2-1.3); Blood Urea Nitrogen 18 mg/dL (9-20); Calcium 9.3 mg/dL (8.4-10.2); Carbon Dioxide 23 mmol/L (22-30); Chloride 107 mmol/L (98-107); Estimated CRCL calculation 82 ml/min; Estimated Glomerular Filt Rate > 60; Glucose 124 mg/dL (65-110); Potassium 3.7 mmol/L (3.4-5.0); Sodium 138 mmol/L (137-145)
[2024-10-20 20:41] LABS: Troponin I < 0.012 ng/mL (0.000-0.034)
[2024-10-20 21:41] VITALS: BP 152/80; PULSE 47; RESP 20; O2SAT 97
[2024-10-20 23:19] VITALS: BP 144/67; PULSE 47; RESP 18; O2SAT 100
[2024-10-20] MEDS: ORPHENADRINE CITRATE 100 MG TABLET.ER PO (23:29)
[2024-10-20] MEDS: KETOROLAC 15 MG/ML VIAL (*BKC) IV PUSH (23:29)
[2024-10-20 23:59] LABS: Troponin I < 0.012 ng/mL (0.000-0.034)
[2024-10-21 00:42] VITALS: BP 144/67; PULSE 46; RESP 18; O2SAT 98
== END 2024-10-21 00:43 | disposition home or self-care (01) ==
PROVIDERS: Physician Assistant; Emergency Provider Emergency Medicine; PCP Nurse Practitioner Family
DX: M25.512 Pain in left shoulder (principal); I25.10 Atherosclerotic heart disease of native coronary artery without angina pectoris; Z87.891 Personal history of nicotine dependence
CPT/HCPCS: 36415; 71045; 72125; 73030; 80053; 84484; 85025; 85610; 85730; 93005; 96374; 99284; A9270; J1885